=== PATIENT | male | born 1990 | race Caucasian/White ===

== ENCOUNTER 2016-12-11 18:02 | Emergency (ER) | payer BC ==
[~2016-12-11] VITALS: Ht 172.7 cm; Wt 100.0 kg
[~2016-12-11 18:02] MED LIST: METO50TA16 PO; TRAM50TA2 PO
[2016-12-11 18:12] VITALS: Ht 172.7 cm; Wt 100.0 kg
[2016-12-11] MEDS ORDERED: ALPR0.5T PO (18:59)
[2016-12-11] MEDS ORDERED: ALPRAZOLAM 0.25 MG TAB PO ONE (19:00)
[2016-12-11 19:16] VITALS: BP 132/71; PULSE 71; RESP 20; TEMP 98.3
--- NOTE | 2016-12-11 20:42 | ERD ---
ER Documentation Chief Complaint Date/Time DATE: 12/11/16 TIME: 20:39 Chief Complaint pt bib self with c/o feels like she might hurt herself (transgender) HPI This 26-year-old female came emergency room at the recommendation of her therapist. She was feeling bad earlier and she is transgender and is going through some difficult times. Stated she was feeling better. She now states that she feels well and does not want to hurt herself in any way. She does not believe that is necessary to go through laboratory examination stay in the emergency room because she is feeling much better. She denies any physical complaints as well. ROS All systems reviewed and are negative except as per history of present illness. Medications Home Meds Active Scripts Alprazolam* (Xanax*) 0.5 Mg Tab, 0.5 MG PO Q8H Y for ANXIETY, #11 TAB Prov:HEIDIWILLIAM DO 12/11/16 Tramadol HCl (Tramadol HCl) 50 Mg Tablet, 50 MG PO Q6 Y for PAIN, #20 TAB Prov:PRISCILLA STANTON DO 08/01/15 Reported Medications Metoprolol Succinate* (Toprol XL*) 50 Mg Tab.er.24h, 50 MG PO DAILY 02/26/14 Allergies Allergies: Coded Allergies: Penicillins (Verified Allergy, Unknown, 09/20/14) PMhx/Soc History of Surgery: Yes (elbow) Anesthesia Reaction: No Hx Neurological Disorder: No Hx Cardiac Disorders: Yes (postural orthostatic tachycardia) Hx Psychiatric Problems: No Hx Miscellaneous Medical Probl: No Hx Alcohol Use: No Hx Substance Use: No Hx Tobacco Use: No Smoking Status: Never smoker Physical Exam Vitals Vital Signs Date Time Temp Pulse Resp B/P Pulse Ox O2 Delivery O2 Flow Rate FiO2 12/11/16 19:16 98.3 71 20 132/71 98 Room Air 12/11/16 18:12 98.3 90 16 140/73 98 Physical Exam Const: [] No distress Head: Atraumatic Eyes: Normal Conjunctiva ENT: Normal External Ears, Nose and Mouth. Neck: Full range of motion..~ No meningismus. Ext: No cyanosis, or edema Neur: Awake and alert Psych: Normal Mood and Affect, calm reasonable and pleasant Results 24 hrs Current Medications Medications (Trade) Dose Ordered Sig/Anish Route PRN Reason Start Time Stop Time Status Last Admin Dose Admin Alprazolam (Xanax) 0.5 mg ONCE ONCE PO 12/11/16 19:00 12/11/16 19:01 DC 12/11/16 19:04 Procedures/MDM This is a very nice 26-year-old female with depression earlier in the day. She now states that she is feeling better. She is very common reasonable I do not have any suspicion that she is lying. I offered her a Xanax tablet for any anxiety she might feel she said that would be nice and would may prevent her from feeling bad again. Going to discharge her with a few Xanax tabs and she Lionel has good therapist follow-up. She is in stable condition. I am going to discharge her with instructions to see her therapist next couple of days and return to the ER if she has any bad thoughts again. Departure Diagnosis: Primary Impression: Depression Condition: Stable Patient Instructions: Depression Referrals: PIERRE CLARKE Additional Instructions: Call your primary care doctor TOMORROW for an appointment during the next 2-3 days.See the doctor sooner or return here if your condition worsens before your appointment time. WILLIAM GORDON DO Dec 11, 2016 20:41
== END 2016-12-11 19:20 | disposition home or self-care (01) ==
LOC: E/R 18:02
DX: F32.9 Major depressive disorder, single episode, unspecified (principal)
CPT/HCPCS: 99283

== ENCOUNTER 2017-11-09 04:33 | Inpatient (IN) | END 2017-11-12 13:02 | disposition home or self-care (01) | DRG 854 ==

== ENCOUNTER 2018-08-04 01:42 | Emergency (ER) | payer BC, OTHER ==
[~2018-08-04] VITALS: Ht 172.7 cm; Wt 114.8 kg
[~2018-08-04 01:42] MED LIST changes: +ALPR0.5T PO; +CIPR500T4 PO; +ESTR1TAB23 SUBLINGUAL; +FINA1TAB16 PO; +FLUC200T PO; +FLUT16SP17 NASAL; +HYDR-3601 PO; +METO-319 PO; -METO50TA16 PO; +PANT40TA4 PO
[2018-08-04 01:47] VITALS: RESP 18; Ht 172.7 cm; Wt 114.8 kg
[2018-08-04] MEDS ORDERED: SOD CHLORIDE 0.9% 500 ML IV STA (03:01)
[2018-08-04] MEDS ORDERED: ONDANSETRON 4 MG INJ IV STA (03:01)
[2018-08-04] MEDS ORDERED: MECL12.574 PO (04:41)
[2018-08-04 04:48] VITALS: BP 155/75; PULSE 80
--- NOTE | 2018-08-04 04:50 | ERD ---
ER Documentation Chief Complaint Chief Complaint BIB RA W/ C/O DIZZINESS AND JOVANI EAR PRESSURE X30 MIN HPI This is a 28-year-old female with history of "arrhythmia" who is brought to the ED by paramedics status post waking up with sudden onset dizziness and lightheadedness this morning. No recent URI type symptoms. She also reports a sensation of the room spinning with bilateral ear ringing. She denies any nausea or vomiting. No recent URI type symptoms. Denies any changes in vision. Denies any head trauma. Denies any shortness of breath or palpitations. No other symptoms. ROS All systems reviewed and are negative except as per history of present illness. Medications Home Meds Active Scripts Meclizine Hcl* (Antivert*) 12.5 Mg Tab, 12.5 MG PO Q6H PRN for DIZZINESS, #20 TAB Prov:IVON MASON PA-C 08/04/18 Allergies Allergies: Coded Allergies: Penicillins (Verified Allergy, Unknown, 08/04/18) PMhx/Soc History of Surgery: Yes (appendectomy) Hx Cardiac Disorders: Yes ("arrythmia") Hx Miscellaneous Medical Probl: Yes ("hormonal imbalance", acid reflux) Hx Alcohol Use: No Hx Substance Use: No Hx Tobacco Use: No Smoking Status: Never smoker Physical Exam Vitals Vital Signs Date Temp Pulse Resp B/P (MAP) Pulse Ox O2 O2 Flow FiO2 Time Delivery Rate 08/04/18 97.9 90 18 156/89 97 01:47 (111) Physical Exam Const: No acute distress Head: Atraumatic Eyes: Normal Conjunctiva. EOMI. PERRLA. No nystagmus. ENT: Normal External Ears, Nose and Mouth. Bilateral TMs pearly and pascal. Neck: Full range of motion. No meningismus. Resp: Clear to auscultation bilaterally Cardio: Regular rate and rhythm, no murmurs Abd: Soft, non tender, non distended. Normal bowel sounds Skin: No petechiae or rashes Back: No midline or flank tenderness Ext: No cyanosis, or edema Neuro: M/S: Alert and oriented Face: EOMI, face and pharynx with normal sensation and function Motor: Normal strength throughout Sensation: Normal sensation throughout Speech: Normal Cerebel: Normal coordination Normal gait Psych: Normal Mood and Affect Result Diagram: 08/04/18 0330 08/04/18 0330 Results 24 hrs Laboratory Tests Test 08/04/18 03:30 White Blood Count 8.8 10^3/ul Red Blood Count 4.75 10^6/ul Hemoglobin 13.0 g/dl Hematocrit 38.9 % Mean Corpuscular Volume 81.9 fl Mean Corpuscular Hemoglobin 27.4 pg Mean Corpuscular Hemoglobin Concent 33.4 g/dl Red Cell Distribution Width 14.3 % Platelet Count 249 10^3/UL Mean Platelet Volume 9.4 fl Immature Granulocytes % 0.600 % Neutrophils % 61.5 % Lymphocytes % 29.7 % Monocytes % 5.8 % Eosinophils % 2.1 % Basophils % 0.3 % Nucleated Red Blood Cells % 0.0 /100WBC Immature Granulocytes # 0.050 10^3/ul Neutrophils # 5.4 10^3/ul Lymphocytes # 2.6 10^3/ul Monocytes # 0.5 10^3/ul Eosinophils # 0.2 10^3/ul Basophils # 0.0 10^3/ul Nucleated Red Blood Cells # 0.0 10^3/ul Sodium Level 142 mmol/L Potassium Level 3.8 mmol/L Chloride Level 112 mmol/L Carbon Dioxide Level 22 mmol/L Anion Gap 8 Blood Urea Nitrogen 10 mg/dl Creatinine 0.62 mg/dl Est Glomerular Filtrat Rate mL/min > 60 mL/min Glucose Level 147 mg/dl Calcium Level 9.5 mg/dl Current Medications Medications Dose Sig/Anish Start Time Status Last (Trade) Ordered Route PRN Stop Time Admin Dose Reason Admin Sodium 500 ml @ Q1H STAT 08/04/18 DC 08/04/18 Chloride 500 mls/hr IV 03:01 08/04/18 03:32 04:00 Ondansetron 4 mg ONCE STAT 08/04/18 DC 08/04/18 HCl (Zofran IV 03:01 08/04/18 03:32 Inj) 03:02 Procedures/MDM LABS & DIAGNOSTIC IMAGING: CBC: no e/o of systemic infection or severe anemia CMP: no e/o severe acidosis, alkalosis, renal failure, diabetic ketoacidosis, liver disease PROCEDURES: 12-lead EKG interpretation as interpeted by Dr. Almonte. Normal Sinus Rhythm with ventricular rate of 78 beats per minute Normal axis Normal intervals No acute ST or T wave changes suggestive of acute ischemia or STEMI. ED COURSE: The patient was given IV fluids and Zofran The medication was well tolerated and the patient had market improvement in sy mptoms. The patient remained stable throughout ED course. MEDICAL DECISION MAKING: This is a 28-year-old female presents with complaints of lightheadedness and dizziness. She has no focal neurological deficit on physical exam. Workup as above including CBC and CMP without significant evidence of dehydration, infection or anemia. EKG shows normal sinus rhythm without any evidence of arrhythmia. Symptoms are likely peripheral in nature. I have low suspicion for central cause of her dizziness or vertigo. Low suspicion for intracranial bleeding, hemorrhage, mass, or any other symptoms. She does not need any further workup at this time. She feels significant better status post IV fluids and Zofran. She is tolerating p.o. prior to discharge. I recommended following up with the welding machine operator electro gas in 2 days, otherwise return here for any new or worsening symptoms. PRESCRIPTIONS: Meclizine SPECIALIST FOLLOW UP RECOMMENDED: None Patient has been advised to follow up with primary care in 1-2 days. Blood Pressure Assessment: Patient's blood pressure was elevated (>120/80) but appears stable without evidence of hypertension emergency or urgency. The patient was counseled about the risks of hypertension and urged to pursue outpatient monitoring and therapy within a week with their primary care physician. Departure Diagnosis: Primary Impression: Dizziness Condition: Stable Patient Instructions: Inner Ear Problems: Causes of Dizziness (Vertigo), Vertigo, Unspecified Referrals: COMMUNITY CLINICS YOU HAVE RECEIVED A MEDICAL SCREENING EXAM AND THE RESULTS INDICATE THAT YOU DO NOT HAVE A CONDITION THAT REQUIRES URGENT TREATMENT IN THE EMERGENCY DEPARTMENT. FURTHER EVALUATION AND TREATMENT OF YOUR CONDITION CAN WAIT UNTIL YOU ARE SEEN IN YOUR DOCTORS OFFICE WITHIN THE NEXT 1-2 DAYS. IT IS YOUR RESPONSIBILITY TO MAKE AN APPOINTMENT FOR FOLOW-UP CARE. IF YOU HAVE A PRIMARY DOCTOR --you should call your primary doctor and schedule an appointment IF YOU DO NOT HAVE A PRIMARY DOCTOR YOU CAN CALL OUR PHYSICIAN REFERRAL HOTLINE AT IF YOU CAN NOT AFFORD TO SEE A PHYSICIAN YOU CAN CHOSE FROM THE FOLLOWING COMMUNITY CLINICS [facility] [address] [facility] [address] [facility] [address] [facility] [address] [facility]. [facility] [address] [facility]. [facility] [address] [facility] YOU HAVE RECEIVED A MEDICAL SCREENING EXAM AND THE RESULTS INDICATE THAT YOU DO NOT HAVE A CONDITION THAT REQUIRES URGENT TREATMENT IN THE EMERGENCY DEPARTMENT. FURTHER EVALUATION AND TREATMENT OF YOUR CONDITION CAN WAIT UNTIL YOU ARE SEEN IN YOUR DOCTORS OFFICE WITHIN THE NEXT 1-2 DAYS. IT IS YOUR RESPONSIBILITY TO MAKE AN APPOINTMENT FOR FOLOW-UP CARE. IF YOU HAVE A PRIMARY DOCTOR --you should call your primary doctor and schedule and appointment IF YOU DO NOT HAVE A PRIMARY DOCTOR YOU CAN CALL OUR PHYSICIAN REFERRAL HOTLINE AT . IF YOU CAN NOT AFFORD TO SEE A PHYSICIAN YOU CAN CHOSE FROM THE FOLLOWING [facility]: [facility] [address] [place] [address] [facility] [address] [place] [address] [facility] + [facility] [address] [place] [address] [facility] Additional Instructions: Call your primary care doctor TOMORROW for an appointment during the next 2-4 days and bring all the information and medications prescribed. If the symptoms get worse and your provider is unavailable, return to the Emergency Department immediately. IVON MASON PA-C Aug 04, 2018 04:50
== END 2018-08-04 05:53 | disposition home or self-care (01) ==
LOC: MERGE 01:42 → FTE 01:42
DX: R42 Dizziness and giddiness (principal)
CPT/HCPCS: 80048; 85025; 93005; 96361; 96374; 99284; J2405; J7040

== ENCOUNTER 2018-08-25 08:11 | Inpatient (IN) | payer BC ==
[~2018-08-25] VITALS: Ht 175.3 cm; Wt 115.0 kg
[~2018-08-25 08:11] MED LIST changes: +MECL12.574 PO
[2018-08-25] MEDS ORDERED: ONDANSETRON 4 MG INJ IV STA (08:51)
[2018-08-25] MEDS ORDERED: FAMOTIDINE 20 MG TAB PO STA (08:51)
[2018-08-25] MEDS ORDERED: SOD CHLORIDE 0.9% 1,000 ML IV STA (08:51)
[2018-08-25] MEDS ORDERED: KETOROLAC 30 MG INJ IV STA (08:51)
[2018-08-25] MEDS ORDERED: IOHEXOL 300MG/ML 150 ML BTL ONE (09:24)
[2018-08-25] MEDS ORDERED: SOD CHLORIDE 0.9% 100 ML ONE (09:24)
[2018-08-25] MEDS ORDERED: LORAZEPAM 2 MG INJ IV ONE (10:30)
[2018-08-25] MEDS ORDERED: ASPIRIN 81 MG TAB PO ONE (10:30)
[2018-08-25] MEDS ORDERED: PANT40TA3 PO (11:18)
[2018-08-25] MEDS ORDERED: METO-319 PO (11:19)
[2018-08-25] MEDS ORDERED: EST2 PO (11:19)
[2018-08-25] MEDS ORDERED: FINA1TAB16 PO (11:20)
--- NOTE | 2018-08-25 14:11 | HP ---
Date/Time of Note Date/Time of Note DATE: 08/25/18 TIME: 14:11 Assessment/Plan VTE Prophylaxis Pharmacological prophylaxis: LMWH Lines/Catheters IV C[facility]ter Type (from [facility]): Peripheral IV Assessment/Plan Hospital Course 28-year-old female with comorbidities including postural orthostatic tachycardia, anxiety, and obesity who came to the emergency room with chief complaint of sudden onset chest pain, with evidence of elevated troponins in the emergency room, who will be admitted to inpatient setting for further treatment and evaluation. 1. NSTEMI. -The patient will be continued on aspirin. -Will involve cardiology on the case. -Obtain a 2D echocardiogram to evaluate left ventricular ejection fraction and to evaluate for any wall motion abnormalities. 2. Postural orthostatic tachycardia. -Resume Toprol-XL. 3. Anxiety disorder. -Continue PRN anxiolytics. 4. Obesity. -BMI 37. -Weight reduction will be advised. Plan: The patient will be admitted to inpatient telemetry floor. The patient will be started on a regular diet. The patient will be started on DVT prophylaxis and gastrointestinal prophylaxis. The patient will remain a full code. Activities will be as tolerated. The rest of the patient's management will be based on the clinical course, inputs from consultants, and the results of diagnostic studies. Based on the patient's clinical presentation, she most probably requires at least 1 midnight's stay for further management and evaluation of her clinical presentation. The patient was seen in collaboration with Dr. Bañuelos. Result Diagram: 08/25/1891908/25/1820 Results 24hrs Laboratory Tests Test 08/25/18 09:05 08/25/18 09:19 08/25/18 09:20 POC Beta HCG, Qualitative NEGATIVE Urine Color YELLOW Urine Clarity SLIGHTLY CLOUDY A Urine pH 5.0 Urine Specific Wells 1.027 Urine Ketones NEGATIVE Urine Nitrite NEGATIVE Urine Bilirubin NEGATIVE Urine Urobilinogen NEGATIVE Urine Leukocyte Esterase TRACE A Urine Microscopic RBC 1 Urine Microscopic WBC 4 Urine Squamous FEW Epithelial Cells Urine Hemoglobin NEGATIVE Urine Glucose NEGATIVE Urine Total Protein NEGATIVE Urine Opiates Screen NEGATIVE Urine Barbiturates NEGATIVE Urine Amphetamines Screen NEGATIVE Urine Benzodiazepines Screen NEGATIVE Urine Cocaine Screen NEGATIVE Urine Cannabinoids NEGATIVE White Blood Count 9.9 Red Blood Count 5.50 H Hemoglobin 15.0 Hematocrit 44.4 Mean Corpuscular Volume 80.7 L Mean Corpuscular Hemoglobin 27.3 L Mean Corpuscular 33.8 Hemoglobin Concent Red Cell Distribution Width 13.9 Platelet Count 265 Mean Platelet Volume 9.2 Immature Granulocytes % 0.300 Neutrophils % 67.9 Lymphocytes % 26.3 Monocytes % 4.0 Eosinophils % 1.3 Basophils % 0.2 Nucleated Red Blood Cells % 0.0 Immature Granulocytes # 0.030 Neutrophils # 6.7 Lymphocytes # 2.6 Monocytes # 0.4 Eosinophils # 0.1 Basophils # 0.0 Nucleated Red Blood Cells # 0.0 Sodium Level 143 Potassium Level 3.8 Chloride Level 109 Carbon Dioxide Level 22 Anion Gap 12 Blood Urea Nitrogen 10 Creatinine 0.53 Est Glomerular Filtrat > 60 Rate mL/min Glucose Level 117 Calcium Level 10.0 Total Bilirubin 0.3 Direct Bilirubin 0.00 Indirect Bilirubin 0.3 Aspartate Amino 21 Transf (AST/SGOT) Alanine 19 Aminotransferase (ALT/SGPT) Alkaline Phosphatase 87 Troponin I 0.252 *H Total Protein 7.6 Albumin 4.5 Globulin 3.10 Albumin/Globulin Ratio 1.45 Lipase 39 HPI/ROS Admit Date/Time Admit Date/Time Hx of Present Illness Reason for admission: Chest pain, elevated troponins. Consultants 1.Joo Cline MD, cardiology. This is a 28-year-old female (male to female gender change surgery) with a past medical history of anxiety, postural orthostatic tachycardia, and obesity. The patient came to the emergency room with sudden onset of chest pain. The patient verbalized that the chest pain started after she took her morning medications including Protonix, Toprol-XL, estradiol, and acetazolamide. The patient suddenly felt a throbbing pain in the chest with radiation to the back and bilateral arms. Patient also verbalized associated diaphoresis. The patient panicked and called 911. She was unable to convey if she was dyspneic because she was hyperventilating with underlying anxiety. The patient also verbalized that she has been sick recently and she recently finished her [employer] tripack. She denied any fevers or chills. The patient also verbalized that she has been evaluated by gastroenterology for her chronic right upper quadrant pain and intermittent diarrhea and the patient is scheduled for an endoscopy on September 26, 2018. The patient denied any calf pain or recent prolonged immobilization. In the emergency room, the patient's chest x-ray was negative for any acute findings. The patient underwent a CT scan of the abdomen and pelvis that was negative for any acute intra-abdominal/pelvic inflammatory process. However the CT showed several right lower quadrant mesenteric lymph nodes. The patient's troponin was slightly elevated (0.252). The patient was treated with a single dose of aspirin, IV anxiolytics, and IV Toradol in the emergency room. ROS Constitutional: diaphoresis, nausea Eyes: no complaints ENT: no complaints Respiratory: shortness of breath Cardiovascular: chest pain Gastrointestinal: pain Genitourinary: no complaints Musculoskeletal: bone/joint pain Skin: no complaints Neurologic: no complaints Endocrine: no complaints Lymphatic: no complaints Psychological: anxiety Immunologic: no complaints PMH/Family/Social Past Medical History 1. Postural orthostatic tachycardia. 2. Obesity. 3. Anxiety disorder. Coded Allergies: Penicillins (Verified Allergy, Unknown, 08/25/18) Past Surgical History 1. Genital reconstructive surgery (male to female). 2. B/L orchiectomy. 3. Right elbow surgery. 4. Facial surgery. 5. Appendectomy. Past Surgical Hx: other Family History Significant Family History: no pertinent family hx Social History Lives with her father. 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 Alcohol Use: none Smoking Status: Never smoker Drug Use: none Exam/Review of Systems Vital Signs Vitals Vital Signs Date Temp Pulse Resp B/P (MAP) Pulse Ox O2 O2 Flow FiO2 Time Delivery Rate 08/25/18 98 18 153/78 100 Room Air 12:30 (103) 08/25/18 97.6 08:27 Exam Exam General: Obese, 28 year-old female lying in bed in no apparent distress. HEENT: Normocephalic, atraumatic. Eyes: Anicteric sclerae, conjunctivae clear. ENT: Nasal septum midline, oral mucosa moist. Neck supple. Respiratory: Bilaterally diminished breath sounds. No use of accessory muscles of respiration. No adventitious breath sounds. Cardiovascular: S1, S2 heard. Regular rate and rhythm. Abdomen: Soft, nontender, and nondistended. Bowel sounds positive in all 4 quadrants. Genitourinary: Deferred. Extremities: No cyanosis, no clubbing, no edema. Peripheral pulses palpable. Neurologic: Cranial nerves II through XII grossly intact. The patient is awake, alert, and oriented. Skin: Normal skin turgor. No skin rashes. Additional Comments CT Abdomen & Pelvis IMPRESSION: 1. No evidence of acute intra-abdominal/pelvic inflammatory process. No evidence of bowel obstruction. The appendix not visualized. Status post appendectomy. Several right lower quadrant mesenteric lymph nodes, which may represent mesenteric lymphadenitis. 2. No evidence of free fluid or free air. No gross focal fluid collections. 3. No gross renal/ureteric calculi. No evidence of obstructive uropathy. CXR IMPRESSION: 1. No acute pulmonary abnormality. DORITA THOMPSON NP Aug 25, 2018 14:11
[2018-08-25] MEDS ORDERED: ACETAMINOPHEN 325 MG TAB PO PRN (14:30)
[2018-08-25] MEDS ORDERED: LORAZEPAM 2 MG INJ IV PRN (14:30)
[2018-08-25] MEDS ORDERED: ONDANSETRON 4 MG INJ IV PRN (14:30)
[2018-08-25] MEDS ORDERED: NACL 0.9% 3 ML SYG IV SCH (14:30)
--- NOTE | 2018-08-25 14:46 | ERD ---
ER Documentation Chief Complaint Chief Complaint EPIGASTRIC PAIN THIS MORNING AFTER TAKING MORNING MEDS HPI This is a 28-year-old woman brought in by EMS for pressure-like substernal chest pain radiating to the neck, upper back, and bilateral shoulders. She does have a history of suspected gastritis and uses GI medications including Protonix daily, states her chest pain today began immediately after using her morning medications. Along with the chest discomfort she also had diaphoresis but denied dizziness, loss of consciousness, nausea, or shortness of breath. Patient also has a long history of anxiety and has on average about one attack every 1 to 2 months. Patient did suffer with URI symptoms last week including nasal congestion, rhinorrhea, and cough and her PMD prescribed her azithromycin and finished her course of couple of days ago. Patient denies similar episodes of chest pain or discomfort, she has had no calf or leg swelling, no vomiting or diarrhea, no shortness of breath. ROS All systems reviewed and are negative except as per history of present illness. Medications Home Meds Reported Medications Finasteride* (Finasteride*) 1 Mg Tablet, 1 MG PO HS, TAB 08/25/18 Metoprolol Succinate* (Toprol XL*) 50 Mg Tab.er.24h, 50 MG PO DAILY, #30 TAB 08/25/18 Estradiol* (Estrace*) 2 Mg Tab, 4 MG PO TID, TAB 08/25/18 Pantoprazole* (Protonix*) 40 Mg Tablet.dr, 40 MG PO DAILY, TAB 08/25/18 Discontinued Reported Medications Fluticasone Propionate* (Fluticasone Propionate* Nasal) 50 Mcg/[place] - 16 Gm [place].susp, 2 SPRAYS NASAL DAILY, #1 BOTTLE TO EACH NOSTRIL 11/09/17 Estradiol* (Estrace*) 1 Mg Tablet, 2 MG SUBLINGUAL BID, TAB 11/09/17 Finasteride* (Finasteride*) 1 Mg Tablet, 1 MG PO DAILY, TAB 11/09/17 Pantoprazole (Protonix) 40 Mg Tabec, 40 MG PO DAILY, TAB 11/09/17 Metoprolol Succinate* (Toprol XL*) 50 Mg Tab.er.24h, 50 MG PO DAILY 02/26/14 Discontinued Scripts Meclizine Hcl* (Antivert*) 12.5 Mg Tab, 12.5 MG PO Q6H PRN for DIZZINESS, #20 TAB Prov:DISHIGRIKIAN,ZEPYUR Henrietta DHALIWAL 08/04/18 Hydrocodone Bit-Acetaminophen (Hydrocodone Bit-APAP) 5-325MG Tablet, 1 TAB PO Q8 PRN for BREAKTHROUGH PAIN/PAIN 02/05 for 7 Days, #21 TAB Prov:JOHN FELDMAN 11/12/17 Ciprofloxacin Hcl* (Ciprofloxacin Hcl*) 500 Mg Tablet, 500 MG PO BID@06,18 for 7 Days, #14 TAB Prov:JOHN FELDMAN 11/12/17 Fluconazole* (Diflucan*) 200 Mg Tablet, 200 MG PO DAILY for 13 Days, #13 TAB Prov:JOHN FELDMAN 11/12/17 Alprazolam* (Xanax*) 0.5 Mg Tab, 0.5 MG PO Q8H PRN for ANXIETY, #11 TAB Prov:HEIDIWILLIAM 12/11/16 Tramadol HCl (Tramadol HCl) 50 Mg Tablet, 50 MG PO Q6 PRN for PAIN, #20 TAB Prov:PRISCILLA STANTON DO 08/01/15 Allergies Allergies: Coded Allergies: Penicillins (Verified Allergy, Unknown, 08/25/18) PMhx/Soc Anxiety, recent URI completed a course of azithromycin History of Surgery: Yes (appendectomy) Anesthesia Reaction: No Hx Neurological Disorder: No Hx Respiratory Disorders: No Hx Cardiac Disorders: Yes (ORTHOSTATIC TACHYCARDIA) Hx Psychiatric Problems: No Hx Miscellaneous Medical Probl: Yes ("hormonal imbalance", acid reflux) Hx Alcohol Use: No Hx Substance Use: No Hx Tobacco Use: No Smoking Status: Never smoker Physical Exam Vitals Vital Signs Date Temp Pulse Resp B/P (MAP) Pulse Ox O2 O2 Flow FiO2 Time Delivery Rate 08/25/18 98 18 153/78 100 Room Air 12:30 (103) 08/25/18 101 18 151/80 100 Room Air 10:30 (103) 08/25/18 97.6 82 18 165/80 97 08:27 (108) Physical Exam GENERAL: Well-developed, well-nourished, he appeared anxious, afebrile HEENT: Moist mucous membranes, pink conjunctiva, no cervical spine tenderness or step-off deformities, no goiter, no jaundice or icterus, extraocular movements intact without pain. No submandibular induration, and no pharyngeal erythema NEURO: Alert and oriented 3, cranial nerves II through XII intact bilaterally, pupils equal round reactive to light, no focal deficits or facial asymmetry, sensation intact distally Strength 5/5 in upper and lower extremities bilaterally CARDIAC: Regular rate and rhythm, no murmurs rubs or gallops LUNGS: Clear bilaterally no wheezing crackles or stridor ABDOMEN: Soft nontender, no guarding, no rigidity, no rebound, no psoas sign no obturator sign. Normoactive bowel sounds SKIN: Warm and dry to touch, diffuse pallor, no abrasions, contusions, or hematomas, no lacerations, no ecchymosis, no target lesions, and without ulcers EXTREMITIES: No clubbing cyanosis or edema, calves are bilaterally symmetrical, no Homans sign, no popliteal cord sign. Distal pulses equal and bilateral PSYCH: Anxious Result Diagram: 08/25/1891908/25/18919 Results 24 hrs Laboratory Tests Test 08/25/18 09:05 08/25/18 09:19 08/25/18 09:20 POC Beta HCG, Qualitative NEGATIVE Urine Color YELLOW Urine Clarity SLIGHTLY CLOUDY Urine pH 5.0 Urine Specific [place] 1.027 Urine Ketones NEGATIVE mg/dL Urine Nitrite NEGATIVE mg/dL Urine Bilirubin NEGATIVE mg/dL Urine Urobilinogen NEGATIVE mg/dL Urine Leukocyte Esterase TRACE Tanner/ul Urine Microscopic RBC 1 /HPF Urine Microscopic WBC 4 /HPF Urine Squamous Epithelial Cells FEW /HPF Urine Hemoglobin NEGATIVE mg/dL Urine Glucose NEGATIVE mg/dL Urine Total Protein NEGATIVE mg/dl Urine Opiates Screen NEGATIVE Urine Barbiturates NEGATIVE Urine Amphetamines Screen NEGATIVE Urine Benzodiazepines Screen NEGATIVE Urine Cocaine Screen NEGATIVE Urine Cannabinoids NEGATIVE White Blood Count 9.9 10^3/ul Red Blood Count 5.50 10^6/ul Hemoglobin 15.0 g/dl Hematocrit 44.4 % Mean Corpuscular Volume 80.7 fl Mean Corpuscular Hemoglobin 27.3 pg Mean Corpuscular 33.8 g/dl Hemoglobin Concent Red Cell Distribution Width 13.9 % Platelet Count 265 10^3/UL Mean Platelet Volume 9.2 fl Immature Granulocytes % 0.300 % Neutrophils % 67.9 % Lymphocytes % 26.3 % Monocytes % 4.0 % Eosinophils % 1.3 % Basophils % 0.2 % Nucleated Red Blood Cells % 0.0 /100WBC Immature Granulocytes # 0.030 10^3/ul Neutrophils # 6.7 10^3/ul Lymphocytes # 2.6 10^3/ul Monocytes # 0.4 10^3/ul Eosinophils # 0.1 10^3/ul Basophils # 0.0 10^3/ul Nucleated Red Blood Cells # 0.0 10^3/ul Sodium Level 143 mmol/L Potassium Level 3.8 mmol/L Chloride Level 109 mmol/L Carbon Dioxide Level 22 mmol/L Anion Gap 12 Blood Urea Nitrogen 10 mg/dl Creatinine 0.53 mg/dl Est Glomerular Filtrat > 60 mL/min Rate mL/min Glucose Level 117 mg/dl Calcium Level 10.0 mg/dl Total Bilirubin 0.3 mg/dl Direct Bilirubin 0.00 mg/dl Indirect Bilirubin 0.3 mg/dl Aspartate Amino 21 IU/L Transf (AST/SGOT) Alanine 19 IU/L Aminotransferase (ALT/SGPT) Alkaline Phosphatase 87 IU/L Troponin I 0.252 ng/ml Total Protein 7.6 g/dl Albumin 4.5 g/dl Globulin 3.10 g/dl Albumin/Globulin Ratio 1.45 Lipase 39 U/L Current Medications Medications Dose Sig/Anish Start Time Status Last (Trade) Ordered Route PRN Stop Time Admin Dose Reason Admin Sodium 1,000 ml @ Q1H STAT 08/25/18 DC 08/25/18 Chloride 1,000 mls/hr IV 08:51 09:17 08/25/18 09:50 Ondansetron 4 mg ONCE STAT 08/25/18 DC 08/25/18 HCl (Zofran IV 08:51 09:18 Inj) 08/25/18 08:53 Famotidine 20 mg ONCE STAT 08/25/18 DC 08/25/18 (Pepcid) PO 08:51 09:18 08/25/18 08:53 Ketorolac 30 mg ONCE STAT 08/25/18 DC Tromethamine IV 08:51 (Toradol) 08/25/18 08:53 IV Flush 10 ml STK-MED 08/25/18 DC 08/25/18 (NS 10 ml) ONCE .ROUTE 09:24 10:43 08/25/18 09:25 Sodium 100 ml @ ud STK-MED 08/25/18 DC 08/25/18 Chloride ONCE .ROUTE 09:24 10:43 08/25/18 09:25 Iohexol 150 ml STK-MED 08/25/18 DC 08/25/18 (Omnipaque ONCE .ROUTE 09:24 10:43 300mg/ ml) 08/25/18 09:25 Aspirin 162 mg ONCE ONCE 08/25/18 DC 08/25/18 (Aspirin) PO 10:30 10:14 08/25/18 10:31 Lorazepam 0.5 mg ONCE ONCE 08/25/18 DC 08/25/18 (Ativan) IV 10:30 10:27 08/25/18 10:31 IV Flush 3 ml PER 08/25/18 (NS 3 ml) PROTOCOL IV 14:30 Lorazepam 0.5 mg Q6H PRN 08/25/18 (Ativan) IV .ANXIETY 14:30 Ondansetron 4 mg Q6H PRN 08/25/18 HCl (Zofran IV 14:30 Inj) NAUSEA/VOMITI NG Aspirin 81 mg DAILY PO 08/26/18 (Aspirin) 09:00 650 mg Q6H PRN 08/25/18 Acetaminophen PO .PAIN 1-3 14:30 (Tylenol OR TEMP Tab) Enoxaparin 40 mg DAILY SC 08/26/18 Sodium 09:00 (Lovenox) Procedures/MDM IV line was established patient was placed on laundry agent rhythm strip revealed a sinus rhythm at about 80 bpm with upright P and T waves. Patient was afebrile EKG performed, read by me: Normal sinus rhythm 81 bpm, normal axis, right ventricular conduction delay QRS duration 100 ms, no concerning ST elevations or depressions noted. One AP view of the chest performed, read by me reveals no acute infiltrates, normal mediastinum, sharp costophrenic and cardiac borders, no air under the diaphragm. Otherwise unremarkable chest x-ray. I initially treated the patient with 1 L normal saline IV, Toradol 30 mg IV, Zofran 4 mg IV, and famotidine p.o. CBC and electrolytes are normal, liver function tests were normal, troponin positive at 0.2. Patient was extremely anxious and administered lorazepam 0.5 mg IV x1 and aspirin 162 mg p.o. for cardioprotective measures. Patient's symptoms are concerning for cardiac cause will require inpatient workup and continuous monitoring. Further w/u for ischemia, arrhythmia, PE or dissection will be deferred to the inpatient team. Accepting Care Team: Current data and ongoing care discussed. Time: Time of admission Primary Provider: Hospitalist Consulting: Cardiology department Outstanding Data: none Patient is without complaints of chest pain or shortness of breath at this time but she will be admitted to telemetry. Departure Diagnosis: Primary Impression: Non-STEMI (non-ST elevated myocardial infarction) Condition: JOHN Mccloud MD Aug 25, 2018 14:37
[2018-08-25 20:26] VITALS: Ht 175.3 cm; Wt 115.0 kg
[2018-08-25 20:39] VITALS: BP 134/61; PULSE 95; RESP 20
[2018-08-25] MEDS ORDERED: ESTRADIOL 1 MG TAB PO SCH (21:00)
[2018-08-26] VITALS (10 sets, daily range): BP systolic 120–128; BP diastolic 56–66; PULSE 66–98; RESP 20
--- NOTE | 2018-08-26 07:38 | CONS ---
Assessment/Plan Assessment/Plan Hospital Course (Demo Recall) Chest pain: Appears to be related to GI causes after taking big pills. Mildly abnormal troponin etiology unclear doubt acute ME History of orthostatic tachycardia Anxiety Obesity History of mild hypertension Recommendation: Continue with aspirin for now continue with the beta-tracie Echocardiogram is pending We will schedule for Lexiscan stress the right ischemia DC planning if a stress test is negative. 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 This is a pleasant 28-year-old female with history of orthostatic hypotension obesity who came to emergency room above complaint. Patient stated that she took her morning pills which according to her or take pills. She said that she rushed to take them. After she took them she started having pain in her throat and in her chest. She felt like she was choking on them. She has never had pain like this before and called family was brought in for initial troponin and subsequent troponin have been slightly elevated. Patient denies any chest pain or pressure with activity or exercise. Allergies: Penicillin Medications were reviewed as per medical reconciliation sheet Family history: Grandparents at old age with coronary artery disease Social history: Does not smoke or drink Past medical history: Orthostatic tachycardia for which she takes metoprolol Review of system: Patient denies all others except for above-mentioned Past Medical History Home Meds Reported Medications Finasteride* (Finasteride*) 1 Mg Tablet, 1 MG PO HS, TAB 08/25/18 Metoprolol Succinate* (Toprol XL*) 50 Mg Tab.er.24h, 50 MG PO DAILY, #30 TAB 08/25/18 Estradiol* (Estrace*) 2 Mg Tab, 4 MG PO TID, TAB 08/25/18 Pantoprazole* (Protonix*) 40 Mg Tablet.dr, 40 MG PO DAILY, TAB 08/25/18 Discontinued Reported Medications Fluticasone Propionate* (Fluticasone Propionate* Nasal) 50 Mcg/[place] - 16 Gm [place].susp, 2 SPRAYS NASAL DAILY, #1 BOTTLE TO EACH NOSTRIL 11/09/17 Estradiol* (Estrace*) 1 Mg Tablet, 2 MG SUBLINGUAL BID, TAB 11/09/17 Finasteride* (Finasteride*) 1 Mg Tablet, 1 MG PO DAILY, TAB 11/09/17 Pantoprazole (Protonix) 40 Mg Tabec, 40 MG PO DAILY, TAB 11/09/17 Metoprolol Succinate* (Toprol XL*) 50 Mg Tab.er.24h, 50 MG PO DAILY 02/26/14 Discontinued Scripts Meclizine Hcl* (Antivert*) 12.5 Mg Tab, 12.5 MG PO Q6H PRN for DIZZINESS, #20 TAB Prov:IVON MASON PA-C 08/04/18 Hydrocodone Bit-Acetaminophen (Hydrocodone Bit-APAP) 5-325MG Tablet, 1 TAB PO Q8 PRN for BREAKTHROUGH PAIN/PAIN 02/05 for 7 Days, #21 TAB Prov:JOHN FELDMAN 11/12/17 Ciprofloxacin Hcl* (Ciprofloxacin Hcl*) 500 Mg Tablet, 500 MG PO BID@,18 for 7 Days, #14 TAB Prov:JOHN FELDMAN 11/12/17 Fluconazole* (Diflucan*) 200 Mg Tablet, 200 MG PO DAILY for 13 Days, #13 TAB Prov:JOHN FELDMAN 11/12/17 Alprazolam* (Xanax*) 0.5 Mg Tab, 0.5 MG PO Q8H PRN for ANXIETY, #11 TAB Prov:WILLIAM GORDON DO 12/11/16 Tramadol HCl (Tramadol HCl) 50 Mg Tablet, 50 MG PO Q6 PRN for PAIN, #20 TAB Prov:PRISCILLA STANTON DO 08/01/15 Medications Current Medications IV Flush (NS 3 ml) 3 ml PER PROTOCOL IV ; Start 08/25/18 at 14:30 Lorazepam (Ativan) 0.5 mg Q6H PRN IV .ANXIETY Last administered on 08/26/18at 07:10; Admin Dose 0.5 MG; Start 08/25/18 at 14:30 Ondansetron HCl (Zofran Inj) 4 mg Q6H PRN IV NAUSEA/VOMITING Last administered on 08/25/18at 23:14; Admin Dose 4 MG; Start 08/25/18 at 14:30 Aspirin (Aspirin) 81 mg DAILY PO ; Start 08/26/18 at 09:00 Acetaminophen (Tylenol Tab) 650 mg Q6H PRN PO .PAIN 1-3 OR TEMP; Start 08/25/18 at 14:30 Enoxaparin Sodium (Lovenox) 40 mg DAILY SC ; Start 08/26/18 at 09:00 Metoprolol Succinate (Toprol Xl) 50 mg DAILY PO ; Start 08/26/18 at 09:00 Pantoprazole (Protonix Tab) 40 mg DAILY PO ; Start 08/26/18 at 09:00 Estradiol (Estrace) 2 mg BID PO ; Start 08/26/18 at 09:00 Allergies: Coded Allergies: Penicillins (Verified Allergy, Unknown, 08/25/18) Past Surgical History Past Surgical Hx: other Social History Alcohol Use: none Smoking Status: Never smoker Drug Use: none Exam/Review of Systems Vital Signs Vitals Vital Signs Date Temp Pulse Resp B/P (MAP) Pulse Ox O2 O2 Flow FiO2 Time Delivery Rate 08/26/18 98.3 87 20 127/62 96 07:32 (83) 08/25/18 Room Air 19:27 Intake and Output 08/25/18 08/25/18 08/26/18 1515:00 23:00 07:00 IntakeIntake Total 500 ml BalanceBalance 500 ml Exam Exam General: no acute distress HEENT: NC/AT. pupils are equal. round. NECK: NO JVD. no stridor. CV: RRR. systolic murmur; no gallop or rubs. PULM: no wheezing or rhonchi. GI: SOFT, NT, ND, no rebound or guarding Extremity: trace B/L LE edema. no clubbing. neuro: awake and alert, OX3. Psych: calm and pleasant rectal: deferred : normal EKG normal sinus rhythm. Repolarization abnormalities Chest x-ray showed no acute cardiopulmonary disease Labs Result Diagram: 08/26/1831208/26/18311 Results 24hrs Laboratory Tests Test 08/25/18 09:05 08/25/18 09:19 08/25/18 09:20 08/25/18 14:41 POC Beta HCG, NEGATIVE Qualitative Urine Color YELLOW Urine Clarity SLIGHTLY CLOUDY A Urine pH 5.0 Urine Specific 1.027 [place] Urine Ketones NEGATIVE Urine Nitrite NEGATIVE Urine Bilirubin NEGATIVE Urine NEGATIVE Urobilinogen Urine Leukocyte TRACE A Esterase Urine Microscopic 1 RBC Urine Microscopic 4 WBC Urine Squamous FEW Epithelial Cells Urine Hemoglobin NEGATIVE Urine Glucose NEGATIVE Urine Total NEGATIVE Protein Urine Opiates NEGATIVE Screen Urine NEGATIVE Barbiturates Urine NEGATIVE Amphetamines Screen Urine NEGATIVE Benzodiazepines Screen Urine Cocaine NEGATIVE Screen Urine NEGATIVE Cannabinoids White Blood Count 9.9 Red Blood Count 5.50 H Hemoglobin 15.0 Hematocrit 44.4 Mean Corpuscular 80.7 L Volume Mean Corpuscular 27.3 L Hemoglobin Mean Corpuscular 33.8 Hemoglobin Concen t Red Cell 13.9 Distribution Width Platelet Count 265 Mean Platelet 9.2 Volume Immature 0.300 Granulocytes % Neutrophils % 67.9 Lymphocytes % 26.3 Monocytes % 4.0 Eosinophils % 1.3 Basophils % 0.2 Nucleated Red 0.0 Blood Cells % Immature 0.030 Granulocytes # Neutrophils # 6.7 Lymphocytes # 2.6 Monocytes # 0.4 Eosinophils # 0.1 Basophils # 0.0 Nucleated Red 0.0 Blood Cells # Sodium Level 143 Potassium Level 3.8 Chloride Level 109 Carbon Dioxide 22 Level Anion Gap 12 Blood Urea 10 Nitrogen Creatinine 0.53 Est Glomerular > 60 Filtrat Rate mL/min Glucose Level 117 Calcium Level 10.0 Total Bilirubin 0.3 Direct Bilirubin 0.00 Indirect 0.3 Bilirubin Aspartate Amino 21 Transf (AST/SGOT) Alanine 19 Aminotransferase (ALT/SGPT) Alkaline 87 Phosphatase Troponin I 0.252 *H 1.210 *H Total Protein 7.6 Albumin 4.5 Globulin 3.10 Albumin/Globulin 1.45 Ratio Lipase 39 Hemoglobin A1c 5.1 Creatine Kinase 40 Creatine Kinase 6.7 Index Creatinine Kinase 2.67 H MB (Mass) Thyroid 0.888 Stimulating Hormone (TSH) Test 08/25/18 16:50 08/25/18 21:12 08/26/18 03:12 08/26/18 03:13 D-Dimer < 220.00 D-Dimer Comment Creatine Kinase 39 30 Creatine Kinase 6.2 5.5 Index Creatinine Kinase 2.40 1.66 MB (Mass) Troponin I 0.483 *H 0.244 *H Sodium Level 143 Potassium Level 3.7 Chloride Level 112 H Carbon Dioxide 21 Level Anion Gap 10 Blood Urea 7 Nitrogen Creatinine 0.51 Est Glomerular > 60 Filtrat Rate mL/min Glucose Level 104 Calcium Level 9.6 Phosphorus Level 3.6 Magnesium Level 1.9 Total Bilirubin 0.5 Direct Bilirubin 0.00 Indirect 0.5 Bilirubin Aspartate Amino 21 Transf (AST/SGOT) Alanine 22 Aminotransferase (ALT/SGPT) Alkaline 73 Phosphatase Total Protein 6.7 Albumin 3.7 Globulin 3.00 Albumin/Globulin 1.23 Ratio Triglycerides 161 H Level Cholesterol Level 149 LDL Cholesterol, 67 Calculated HDL Cholesterol 50 Cholesterol/HDL 2.9 Ratio White Blood Count 8.3 Red Blood Count 4.76 Hemoglobin 13.1 Hematocrit 38.6 Mean Corpuscular 81.1 L Volume Mean Corpuscular 27.5 L Hemoglobin Mean Corpuscular 33.9 Hemoglobin Concen t Red Cell 13.9 Distribution Width Platelet Count 232 Mean Platelet 9.2 Volume Immature 0.200 Granulocytes % Neutrophils % 55.9 Lymphocytes % 37.0 Monocytes % 5.5 Eosinophils % 1.2 Basophils % 0.2 Nucleated Red 0.0 Blood Cells % Immature 0.020 Granulocytes # Neutrophils # 4.6 Lymphocytes # 3.1 H Monocytes # 0.5 Eosinophils # 0.1 Basophils # 0.0 Nucleated Red 0.0 Blood Cells # Medications Medications Current Medications IV Flush (NS 3 ml) 3 ml PER PROTOCOL IV ; Start 08/25/18 at 14:30 Lorazepam (Ativan) 0.5 mg Q6H PRN IV .ANXIETY Last administered on 08/26/18at 07:10; Admin Dose 0.5 MG; Start 08/25/18 at 14:30 Ondansetron HCl (Zofran Inj) 4 mg Q6H PRN IV NAUSEA/VOMITING Last administered on 08/25/18at 23:14; Admin Dose 4 MG; Start 08/25/18 at 14:30 Aspirin (Aspirin) 81 mg DAILY PO ; Start 08/26/18 at 09:00 Acetaminophen (Tylenol Tab) 650 mg Q6H PRN PO .PAIN 1-3 OR TEMP; Start 08/25/18 at 14:30 Enoxaparin Sodium (Lovenox) 40 mg DAILY SC ; Start 08/26/18 at 09:00 Metoprolol Succinate (Toprol Xl) 50 mg DAILY PO ; Start 08/26/18 at 09:00 Pantoprazole (Protonix Tab) 40 mg DAILY PO ; Start 08/26/18 at 09:00 Estradiol (Estrace) 2 mg BID PO ; Start 08/26/18 at 09:00 VICENTA HO MD Aug 26, 2018 07:38
[2018-08-26] MEDS ORDERED: ENOXAPARIN 40 MG/0.4 ML SYG SC SCH (09:00)
[2018-08-26] MEDS ORDERED: ASPIRIN 81 MG TAB PO SCH (09:00)
[2018-08-26] MEDS ORDERED: PANTOPRAZOLE (EC) 40 MG TAB PO SCH (09:00)
[2018-08-26] MEDS ORDERED: ESTRADIOL 1 MG TAB PO SCH (09:00)
[2018-08-26] MEDS ORDERED: METOPROLOL (XL) 50 MG TAB PO SCH (09:00)
--- NOTE | 2018-08-26 10:30 | RADRPT ---
Echocardiogram Report Patient Name: TAYLER SALCEDOPatient ID: [id number] : 1990 (28y 6m)Study Date: 08/26/2018 7:20:53 AM Gender: FAccession #: [id number] Tech: Cecilia Hay [facility] Location: [facility] Ref.Physician: DORITA THOMPSON Height(Cm): BSA: Weight(Kg): Quality: AdequateAccount #: Procedures: Echocardiographic Report: Transthoracic echocardiogram with complete 2D, M-Mode, and doppler examination. Indications: Chest Pain. Measurements: 2D/M Mode Doppler Measurement Value Normal Range Measurement Value Normal Range LVIDd 2D 4.5 [ 3.8 - 5.2 ] cm AV Peak Shadi 1.4 [ 100.0 - 170.0 ] cm/sec LVIDs 2D 2.2 [ 2.2 - 3.5 ] cm AV Peak PG 8.0 [ 2.0 - 9.0 ] mmHg LVPWd 2D 0.9 [ 0.6 - 0.9 ] cm LVOT Peak Shadi 1.0 [ 70.0 - 110.0 ] cm/sec IVSd 2D 0.9 [ 0.6 - 0.9 ] cm LVOT Peak PG 4.0 [ 2.0 - 6.0 ] mmHg AoR Diam 2D 2.6 [ 2.3 - 3.1 ] cm MV E Peak Shadi 0.7 [ 60.0 - 130.0 ] cm/sec EDV 2D 90.5 [ 46.0 - 106.0 ] ml MV A Peak Shadi 0.7 [ 100.0 - 120.0 ] cm/sec ESV 2D 16.0 [ 14.0 - 42.0 ] ml MV E/A 1.0 [ 0.8 - 1.5 ] ratio EF 2D 82.3 [ 54.0 - 74.0 ] percent MV Decel Time 92 [ 104 - 258 ] msec LA Dimen 2D 2.9 [ 2.7 - 3.8 ] cm Lat E` Shadi 0.1 [ 10.0 - 15.0 ] cm/sec Lateral E/E` 6.5 [ 1.0 - 2.0 ] ratio MV E/A 1.0 [ 0.8 - 1.5 ] ratio Findings: Left Ventricle: Normal left ventricular systolic function. Normal left ventricular cavity size. Normal left ventricular wall thickness. Ejection fraction is visually estimated at 65 %. Tissue Doppler/Mitral Doppler indices are within normal limits. Right Ventricle: Normal right ventricular size. Normal right ventricular systolic function. Left Atrium: The left atrium is normal in size. Right Atrium: The right atrium is normal in size. Mitral Valve: Normal appearance and function of the mitral valve with trace physiologic regurgitation. Aortic Valve: Normal appearance of the aortic valve. No significant aortic stenosis or insufficiency. Tricuspid Valve: Normal appearance of the tricuspid valve. Unable to obtain RVSP due to minimal presence of tricuspid regurgitation. Pulmonic Valve: Pulmonic valve not well visualized. Pericardium: Normal pericardium with no significant pericardial effusion. Aorta: Normal aortic root. IVC: Normal size and normal respiratory collapse consistent with normal right atrial pressure. Conclusions: Normal left ventricular systolic function. Normal left ventricular cavity size. Normal left ventricular wall thickness. Ejection fraction is visually estimated at 65 %. Tissue Doppler/Mitral Doppler indices are within normal limits. Normal appearance and function of the mitral valve with trace physiologic regurgitation. Normal appearance of the aortic valve. No significant aortic stenosis or insufficiency. Normal appearance of the tricuspid valve. Unable to obtain RVSP due to minimal presence of tricuspid regurgitation. Electronically Signed By: Joo Cline 2018-08-26 10:30:08 PDT
[2018-08-26] MEDS ORDERED: REGADENOSON 0.4 MG/5 ML SYG ONE (10:44)
--- NOTE | 2018-08-26 14:16 | PDOCDIS ---
Discharge Instructions CONDITION [id number] Patient Condition: [id number] Stable HOME CARE INSTRUCTIONS: [id number] Diet Instructions: [id number] Low Fat /Cholesterol OTHER ORDERS: Other Orders: 1. Resume home medications. 2. Resume activities as tolerated. 3. Follow-up with your permit agent/primary care physician in the 1 to 2 weeks. 4. Take a regular, preferably low-cholesterol diet. 5. Please go to the nearest emergency room if you have any significant chest pain, significant shortness of breath, or any other unusual signs/symptoms. DORITA THOMPSON NP Aug 26, 2018 14:16
--- NOTE | 2018-08-26 14:19 | DS ---
Date/Time of Note Date/Time of Note DATE: 08/26/18 TIME: 14:18 Discharge Summary Admission/Discharge Info Admit Date/Time Aug 25, 2018 at 10:31 Discharge Date/Time Discharge Diagnosis 1. NSTEMI. 2. Atypical chest pain. 3. Postural orthostatic tachycardia. 4. Anxiety disorder. 5. Obesity. BMI 37. Patient Condition: Stable Consults 1. Joo Cline MD, Cardiology. Procedures 2D Echocardiogram Conclusions: Normal left ventricular systolic function. Normal left ventricular cavity size. Normal left ventricular wall thickness. Ejection fraction is visually estimated at 65 %. Tissue Doppler/Mitral Doppler indices are within normal limits. Normal appearance and function of the mitral valve with trace physiologic regurgitation. Normal appearance of the aortic valve. No significant aortic stenosis or insufficiency. Normal appearance of the tricuspid valve. Unable to obtain RVSP due to minimal presence of tricuspid regurgitation. Nuclear medicine Myocardial Perfusion Study IMPRESSION: 1. Negative myocardial perfusion scan. It was 2. There is no evidence for reversible ischemia. 3. Normal wall motion with normal ejection fraction of 62%. Hx of Present Illness Reason for admission: Chest pain, elevated troponins. Consultants 1.Joo Cline MD, cardiology. This is a 28-year-old female (male to female gender change surgery) with a past medical history of anxiety, postural orthostatic tachycardia, and obesity. The patient came to the emergency room with sudden onset of chest pain. The patient verbalized that the chest pain started after she took her morning medications including Protonix, Toprol-XL, estradiol, and acetazolamide. The patient suddenly felt a throbbing pain in the chest with radiation to the back and bilateral arms. Patient also verbalized associated diaphoresis. The patient panicked and called 911. She was unable to convey if she was dyspneic because she was hyperventilating with underlying anxiety. The patient also verbalized that she has been sick recently and she recently finished her [employer] tripack. She denied any fevers or chills. The patient also verbalized that she has been evaluated by gastroenterology for her chronic right upper quadrant pain and intermittent diarrhea and the patient is scheduled for an endoscopy on September 26, 2018. The patient denied any calf pain or recent prolonged immobilization. In the emergency room, the patient's chest x-ray was negative for any acute findings. The patient underwent a CT scan of the abdomen and pelvis that was negative for any acute intra-abdominal/pelvic inflammatory process. However the CT showed several right lower quadrant mesenteric lymph nodes. The patient's troponin was slightly elevated (0.252). The patient was treated with a single dose of aspirin, IV anxiolytics, and IV Toradol in the emergency room. Hospital Course The patient was admitted to inpatient setting. A cardiology consult was obtained. Serial troponins were ordered on this patient. A 2D echocardiogram was ordered. The patient's troponins trended up to as high as 1.210 and then started trending down. Etiology of the patient's chest pain was extensively evaluated. The patient's d-dimer was negative ruling out any thromboembolic process. The patient's 2D echocardiogram was showing preserved left ventricular ejection fraction. The patient underwent a myocardial perfusion study on 08/26/2018 and that was negative for any reversible perfusion defects. The patient's elevated troponins could have been secondary to a type II event from underlying stress that happened when the patient had chest pain. Meanwhile, the patient's chest pain has completely resolved. The patient was initially started on aspirin and this will be discontinued once the patient was ruled out for any reversible perfusion defects in the myocardium. The patient has history of postural orthostatic tachycardia. The patient was maintained on Toprol-XL. The patient was maintained on PRN anxiolytics for her underlying anxiety. The patient is obese with a BMI of more than 37. The patient's fasting lipid panel was satisfactory. The patient's hemoglobin A1c was within normal limits. The patient recently had a gender change surgery from a male to female. The patient was maintained on estrogen supplements. The patient had a stable hospital course. The patient has been ruled out for any underlying ACS. 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 The patient already has a scheduled gastroenterology work-up including esophagogastroduodenoscopy on September 26 as outpatient. Discharge Instructions 1. Resume home medications. 2. Resume activities as tolerated. 3. Follow-up with your refuse and recycling worker/primary care physician in the 1 to 2 weeks. 4. Take a regular, preferably low-cholesterol diet. 5. Please go to the nearest emergency room if you have any significant chest pain, significant shortness of breath, or any other unusual signs/symptoms. The patient verbalized understanding of her discharge instructions. At this time I would like to thank Dr. Cline for seeing the patient and providing clinical recommendations. The patient was seen in collaboration with Dr. Bañuelos. Home Meds Reported Medications Finasteride* (Finasteride*) 1 Mg Tablet, 1 MG PO HS, TAB 08/25/18 Metoprolol Succinate* (Toprol XL*) 50 Mg Tab.er.24h, 50 MG PO DAILY, #30 TAB 08/25/18 Estradiol* (Estrace*) 2 Mg Tab, 4 MG PO TID, TAB 08/25/18 Pantoprazole* (Protonix*) 40 Mg Tablet.dr, 40 MG PO DAILY, TAB 08/25/18 Discontinued Reported Medications Fluticasone Propionate* (Fluticasone Propionate* Nasal) 50 Mcg/[place] - 16 Gm [place].susp, 2 SPRAYS NASAL DAILY, #1 BOTTLE TO EACH NOSTRIL 11/09/17 Estradiol* (Estrace*) 1 Mg Tablet, 2 MG SUBLINGUAL BID, TAB 11/09/17 Finasteride* (Finasteride*) 1 Mg Tablet, 1 MG PO DAILY, TAB 11/09/17 Pantoprazole (Protonix) 40 Mg Tabec, 40 MG PO DAILY, TAB 11/09/17 Metoprolol Succinate* (Toprol XL*) 50 Mg Tab.er.24h, 50 MG PO DAILY 02/26/14 Discontinued Scripts Meclizine Hcl* (Antivert*) 12.5 Mg Tab, 12.5 MG PO Q6H PRN for DIZZINESS, #20 TAB Prov:IVON MASON PA-C 08/04/18 Hydrocodone Bit-Acetaminophen (Hydrocodone Bit-APAP) 5-325MG Tablet, 1 TAB PO Q8 PRN for BREAKTHROUGH PAIN/PAIN 02/05 for 7 Days, #21 TAB Prov:JOHN FELDMAN 11/12/17 Ciprofloxacin Hcl* (Ciprofloxacin Hcl*) 500 Mg Tablet, 500 MG PO BID@18 for 7 Days, #14 TAB Prov:JOHN FELDMAN 11/12/17 Fluconazole* (Diflucan*) 200 Mg Tablet, 200 MG PO DAILY for 13 Days, #13 TAB Prov:JOHN FELDMAN 11/12/17 Alprazolam* (Xanax*) 0.5 Mg Tab, 0.5 MG PO Q8H PRN for ANXIETY, #11 TAB Prov:WILLIAM GORDON DO 12/11/16 Tramadol HCl (Tramadol HCl) 50 Mg Tablet, 50 MG PO Q6 PRN for PAIN, #20 TAB Prov:PRISCILLA STANTON DO 08/01/15 Follow-up Plan Patient to follow-up with her refuse and recycling worker/primary care physician in the next 1 to 2 weeks. Primary Care Provider Care Physician No Primary Time spent on discharge: > 30 minutes Pending Labs Laboratory Tests Test 08/25/18 14:41 08/25/18 16:50 08/25/18 21:12 08/26/18 03:12 Hemoglobin A1c 5.1 % (0-5.9) Creatine 40 39 30 Kinase IU/L (23-200) IU/L (23-200) IU/L (23-200) Creatine Kinase 6.7 6.2 5.5 Index Creatinine 2.67 2.40 1.66 Kinase MB ng/ml (0.0-2.4) ng/ml (0.0-2.4 ng/ml (0.0-2.4 (Mass) ) ) Troponin I 1.210 0.483 0.244 ng/ml (0.000-0. ng/ml (0.000-0 ng/ml (0.000-0 120) .120) .120) Thyroid 0.888 Stimulating MIU/L (0.465-4. Hormone (TSH) 680) D-Dimer < 220.00 ng/ml (<460) D-Dimer Comment Sodium Level 143 mmol/L (135-14 4) Potassium 3.7 Level mmol/L (3.5-5. 1) Chloride Level 112 mmol/L (97-110 ) Carbon Dioxide 21 Level mmol/L (21-31) Anion Gap 10 (5-13) Blood Urea 7 mg/dl (7-20) Nitrogen Creatinine 0.51 mg/dl (0.44-1. 00) Est Glomerular > 60 Filtrat mL/min (>60) Rate mL/min Glucose Level 104 mg/dl (70-220) Calcium Level 9.6 mg/dl (8.4-10. 2) Phosphorus 3.6 Level mg/dl (2.5-4.9 ) Magnesium 1.9 Level mg/dl (1.7-2.5 ) Total 0.5 Bilirubin mg/dl (0.2-1.3 ) Direct 0.00 Bilirubin mg/dl (0.00-0. 20) Indirect 0.5 Bilirubin mg/dl (0-1.1) Aspartate Amino 21 Transf (AST/SGO IU/L (15-46) T) Alanine 22 Aminotransferas IU/L (13-69) e (ALT/SGPT) Alkaline 73 Phosphatase IU/L (42-121) Total Protein 6.7 g/dl (6.1-8.1) Albumin 3.7 g/dl (3.3-4.9) Globulin 3.00 g/dl (1.3-3.2) Albumin/Globuli 1.23 n Ratio Triglycerides 161 Level mg/dl (0-149) Cholesterol 149 Level mg/dl (100-200 ) LDL 67 mg/dl Cholesterol, Calculated HDL 50 Cholesterol mg/dl (33-83) Cholesterol/HDL 2.9 RATIO Ratio Test 08/26/18 03:13 White Blood 8.3 Count 10^3/ul (4.8-10 .8) Red Blood 4.76 Count 10^6/ul (4.20-5 .40) Hemoglobin 13.1 g/dl (12.0-16.0 ) Hematocrit 38.6 % (37.0-47.0) Mean 81.1 Corpuscular fl (82.0-101.0) Volume Mean 27.5 Corpuscular pg (29.0-33.0) Hemoglobin Mean 33.9 Corpuscular g/dl (32.0-37.0 Hemoglobin Conc ) ent Red Cell 13.9 Distribution % (11.5-14.5) Width Platelet Count 232 10^3/UL (140-41 5) Mean Platelet 9.2 Volume fl (7.4-10.4) Immature 0.200 Granulocytes % % (0.001-0.429) Neutrophils % 55.9 % (39.0-77.0) Lymphocytes % 37.0 % (15.0-51.0) Monocytes % 5.5 % (0.0-11.0) Eosinophils % 1.2 % (0.0-7.0) Basophils % 0.2 % (0.0-2.0) Nucleated Red 0.0 Blood Cells % /100WBC (0.0-0. 0) Immature 0.020 Granulocytes # 10^3/ul (0.0-0. 031) Neutrophils # 4.6 10^3/ul (1.6-7. 5) Lymphocytes # 3.1 10^3/ul (0.8-2. 9) Monocytes # 0.5 10^3/ul (0.3-0. 9) Eosinophils # 0.1 10^3/ul (0.0-0. 5) Basophils # 0.0 10^3/ul (0.0-0. 1) Nucleated Red 0.0 Blood Cells # 10^3/ul (0.0-0. 0) DORITA THOMPSON NP Aug 26, 2018 14:19
== END 2018-08-26 19:30 | disposition home or self-care (01) | DRG 282 ==
LOC: FTE 08:11 → TEL 10:31
PROVIDERS: ADMIT Internal Medicine; ATTEND Internal Medicine
PROC: C21G1ZZ Planar Nuclear Medicine Imaging of Myocardium using Technetium 99m (Tc-99m) (ICD-10-PCS; principal; 2018-08-26)
DX: I21.4 Non-ST elevation (NSTEMI) myocardial infarction (principal); R00.0 Tachycardia, unspecified; F41.9 Anxiety disorder, unspecified; E66.9 Obesity, unspecified; Z68.37 Body mass index [BMI] 37.0-37.9, adult
CPT/HCPCS: 36415; 71045; 74177; 78452; 80053; 80061; 80307; 81001; 81025; 82550; 82553; 83036; 83690; 83735; 84100; 84443; 84484; 85025; 85378; 93005; 93017; 93306; 96361; 96374; 96375; A9500; A9505; J1650; J1885; J2060; J2405; J2785; J7030; Q9967

== ENCOUNTER 2018-09-10 09:24 | Emergency (ER) | payer BC ==
[~2018-09-10] VITALS: Ht 175.3 cm; Wt 113.6 kg
[~2018-09-10 09:24] MED LIST changes: -ALPR0.5T PO; -CIPR500T4 PO; +EST2 PO; -ESTR1TAB23 SUBLINGUAL; -FLUC200T PO; -FLUT16SP17 NASAL; -HYDR-3601 PO; -MECL12.574 PO; +PANT40TA3 PO; -PANT40TA4 PO; -TRAM50TA2 PO
[2018-09-10 09:35] VITALS: Ht 175.3 cm; Wt 113.6 kg
--- NOTE | 2018-09-10 09:46 | ERD ---
ER Documentation Chief Complaint Chief Complaint cp starting about 0900 today. ntg and asa given by ems HPI This is a 28-year-old transvestite woman presenting with achy left-sided chest pain when she woke up this morning about an hour prior to arrival. She was here about 2 weeks ago and had similar symptoms and was diagnosed and admitted for non-ST elevation myocardial infarction. Her inpatient work-up was unremarkable and she was discharged to follow-up with PMD, she states she did follow-up with her PMD and continued outpatient work-up for acute coronary syndrome was unrevealing. She denies diaphoresis or shortness of breath, no fevers or chills, no cough, no calf or leg swelling. Patient was transported here without further complications ROS All systems reviewed and are negative except as per history of present illness. Medications Home Meds Active Scripts Naproxen* (Naprosyn*) 500 Mg Tablet, 500 MG PO BID PRN for PAIN AND/OR INFLAMMATION, #30 TAB Prov:JOHN NAVAS MD 09/10/18 Reported Medications Amlodipine Besylate* (Amlodipine Besylate*) 2.5 Mg Tablet, 2.5 MG PO DAILY, #30 TAB 09/10/18 Nitroglycerin* (Nitroglycerin* SL) 0.4 Mg Tab.subl, 0.4 MG SL Q5MIN PRN for CHEST PAIN, BOTTLE 09/10/18 Metoprolol Succinate* (Toprol XL*) 50 Mg Tab.er.24h, 50 MG PO DAILY, #30 TAB 08/25/18 Estradiol* (Estrace*) 2 Mg Tab, 2 MG PO BID, TAB 08/25/18 Pantoprazole* (Protonix*) 40 Mg Tablet.dr, 40 MG PO DAILY, TAB 08/25/18 Discontinued Reported Medications Finasteride* (Finasteride*) 1 Mg Tablet, 1 MG PO HS, TAB 08/25/18 Allergies Allergies: Coded Allergies: Penicillins (Verified Allergy, Unknown, 09/10/18) PMhx/Soc History of recurrent chest pain, severe anxiety, recent non-STEMI and LVEF of 62%, uses estradiol for male to female sex change History of Surgery: Yes ("gender affirmation sx") Anesthesia Reaction: No Hx Neurological Disorder: No Hx Respiratory Disorders: No Hx Cardiac Disorders: No Hx Psychiatric Problems: Yes (hypochondriac, anxiety) Hx Miscellaneous Medical Probl: Yes (hysterectomy, appendectomy) Hx Alcohol Use: No Hx Substance Use: No Hx Tobacco Use: No Smoking Status: Never smoker FmHx Family History: No diabetes Physical Exam Vitals Vital Signs Date Temp Pulse Resp B/P (MAP) Pulse Ox O2 O2 Flow FiO2 Time Delivery Rate 09/10/18 98.3 109 18 143/81 100 09:35 (101) Physical Exam GENERAL: Well-developed, well-nourished, well-hydrated, in no apparent distress, looks nontoxic in appearance HEENT: Moist mucous membranes, pink conjunctiva, no cervical spine tenderness or step-off deformities, no goiter, no jaundice or icterus, extraocular movements intact without pain. No submandibular induration, and no pharyngeal erythema NEURO: Alert and oriented 3, cranial nerves II through XII intact bilaterally, pupils equal round reactive to light, no focal deficits or facial asymmetry, sensation intact distally Strength 5/5 in upper and lower extremities bilaterally CARDIAC: Regular rate and rhythm, no murmurs rubs or gallops LUNGS: Clear bilaterally no wheezing crackles or stridor ABDOMEN: Soft nontender, no guarding, no rigidity, no rebound, no psoas sign no obturator sign. Normoactive bowel sounds SKIN: Warm and dry to touch, no abrasions, contusions, or hematomas, no lacerations, no ecchymosis, no target lesions, and without ulcers EXTREMITIES: No clubbing cyanosis or edema, calves are bilaterally symmetrical, no Homans sign, no popliteal cord sign. Distal pulses equal and bilateral PSYCH: Normal affect without agitation or irritability Result Diagram: 09/10/18 1015 09/10/18 1015 Results 24 hrs Laboratory Tests Test 09/10/18 10:15 White Blood Count 6.7 10^3/ul Red Blood Count 5.18 10^6/ul Hemoglobin 14.2 g/dl Hematocrit 41.8 % Mean Corpuscular Volume 80.7 fl Mean Corpuscular Hemoglobin 27.4 pg Mean Corpuscular Hemoglobin Concent 34.0 g/dl Red Cell Distribution Width 13.5 % Platelet Count 245 10^3/UL Mean Platelet Volume 8.8 fl Immature Granulocytes % 0.300 % Neutrophils % 63.1 % Lymphocytes % 27.3 % Monocytes % 7.6 % Eosinophils % 1.3 % Basophils % 0.4 % Nucleated Red Blood Cells % 0.0 /100WBC Immature Granulocytes # 0.020 10^3/ul Neutrophils # 4.2 10^3/ul Lymphocytes # 1.8 10^3/ul Monocytes # 0.5 10^3/ul Eosinophils # 0.1 10^3/ul Basophils # 0.0 10^3/ul Nucleated Red Blood Cells # 0.0 10^3/ul Sodium Level 143 mmol/L Potassium Level 4.3 mmol/L Chloride Level 107 mmol/L Carbon Dioxide Level 28 mmol/L Anion Gap 8 Blood Urea Nitrogen 11 mg/dl Creatinine 0.61 mg/dl Est Glomerular Filtrat Rate mL/min > 60 mL/min Glucose Level 134 mg/dl Calcium Level 9.6 mg/dl Total Bilirubin 0.4 mg/dl Direct Bilirubin 0.00 mg/dl Indirect Bilirubin 0.4 mg/dl Aspartate Amino Transf (AST/SGOT) 31 IU/L Alanine Aminotransferase (ALT/SGPT) 33 IU/L Alkaline Phosphatase 101 IU/L Troponin I < 0.012 ng/ml Total Protein 7.7 g/dl Albumin 4.3 g/dl Globulin 3.40 g/dl Albumin/Globulin Ratio 1.26 Lipase 31 U/L Current Medications Medications Dose Sig/Anish Start Time Status Last (Trade) Ordered Route PRN Stop Time Admin Dose Reason Admin Sodium 1,000 ml @ Q1H STAT 09/10/18 DC 09/10/18 Chloride 1,000 mls/hr IV 09:49 10:33 09/10/18 10:48 1 tab ONCE ONCE 09/10/18 DC 09/10/18 Nitroglycerin SL 10:00 10:33 09/10/18 10:01 (Nitroglyceri n (Sl Tab) 0.4 Mg) Procedures/MDM IV line was established patient was placed on electronic device monitor rhythm strip revealed a narrow complex tachycardia at 110 bpm with upright P and T waves. Patient was afebrile EKG performed, read by me revealed a sinus tachycardia at 105 bpm, normal axis, narrow QRS complex, no concerning ST elevations or depressions noted Chest X-ray 1V Interpreted by me: Soft Tissue: No acute abnormalities Bones: No acute abnormalities Mediastinum/Cardiac Silhouette/Lungs: No acute abnormalities I administered 1 L normal saline IV and nitroglycerin 0.4 mg sublingual x1 CBC and electrolytes were normal, liver function tests were normal, troponin was negative. The patient's history, physical exam and clinical presentation is concerning for possible cardiogenic etiology and acute coronary syndrome Based on the patient's clinical exam and history and risk factors, I have a much lower clinical concern for pulmonary embolism, acute aortic dissection, pneumothorax, pneumonia, cardiac tamponade Shared Decision Making: We had a conversation regarding risk stratification, and the risks, benefits, alternatives of disposition planning options. Patient preferred discharge if her second troponin is negative which is an option I offered her. I also told her we could admit her for continued medical and cardiac management and observation. Disposition planning: Patient's initial hypertension resolved completely, she is no longer anxious and her vital signs are normal. 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 I find this decision medically acceptable at this time. Differential diagnoses considered, included but not limited to acute coronary syndrome, pulmonary embolism, aortic dissection, abdominal aortic aneurysm, sepsis, stroke, meningitis, encephalitis, pneumonia, appendicitis, cholecystitis, bowel obstruction, pyelonephritis, nephrolithiasis, cystitis, as well as metabolic, hematologic, and electrolyte abnormalities. As well as abscess, cellulitis, fractures, and dislocations. Patient feels much better at this time, and vital signs are normal, symptoms dobbins ve improved. I did give strict instructions to return to the ED if symptoms continue or worsen, patient will otherwise follow-up with primary care physician. Patient understood instructions and agreed to plan. Disclaimer: Inadvertent spelling and grammatical errors are likely due to EHR/dictation software use and do not reflect on the overall quality of patient care. Also, please note that the electronic time recorded on this note does not necessarily reflect the actual time of the patient encounter. Departure Diagnosis: Primary Impression: Chest pain Chest pain type: unspecified Qualified Codes: R07.9 - Chest pain, unspecified Additional Impressions: Hypertension Hypertension type: essential hypertension Qualified Codes: I10 - Essential (primary) hypertension Anxiety Condition: JOHN Franklin MD September 10, 2018 09:46
[2018-09-10] MEDS ORDERED: SOD CHLORIDE 0.9% 1,000 ML IV STA (09:49)
[2018-09-10] MEDS ORDERED: NITROGLYCERIN (SL) 0.4 MG TAB SL ONE (10:00)
[2018-09-10] MEDS ORDERED: NITR0.4T32 SL (10:30)
[2018-09-10] MEDS ORDERED: AMLO2.5T78 PO (10:30)
[2018-09-10] MEDS ORDERED: NAPR-985 PO (11:07)
[2018-09-10] MEDS ORDERED: LORAZEPAM 0.5 MG TAB PO ONE (11:30)
[2018-09-10] MEDS ORDERED: IOHEXOL 0 ML ONE (13:59)
[2018-09-10] MEDS ORDERED: SOD CHLORIDE 0.9% 0 ML ONE (13:59)
[2018-09-10 14:24] VITALS: BP 123/73; PULSE 89; RESP 18
--- NOTE | 2018-09-12 14:47 | RADRPT ---
Vent Rate: 105 bpm RR Interval: 0 msec [place] Interval: 140 msec QRS Duration: 94 msec QT Interval: 344 msec QTC Interval: 454 msec P-R-T Shock: 53 - 43 - 44 degrees Sinus tachycardia Otherwise normal ECG Electronically Signed By: [facility]
== END 2018-09-10 14:30 | disposition home or self-care (01) ==
LOC: E/R 09:24
DX: R07.9 Chest pain, unspecified (principal); I10 Essential (primary) hypertension; F41.9 Anxiety disorder, unspecified
CPT/HCPCS: 36415; 71045; 80053; 83690; 84484; 85025; 93005; 99285; J7030; Q9967

== ENCOUNTER 2018-09-21 01:55 | Emergency (ER) | payer BC ==
[~2018-09-21] VITALS: Ht 175.3 cm; Wt 111.9 kg
[2018-09-21 01:55] VITALS: BP 142/74; PULSE 89; RESP 16; Ht 175.3 cm; Wt 111.9 kg
[~2018-09-21 01:55] MED LIST changes: +AMLO2.5T78 PO; -FINA1TAB16 PO; +NAPR-985 PO; +NITR0.4T32 SL
--- NOTE | 2018-09-21 02:24 | ERD ---
ER Documentation Chief Complaint Chief Complaint BIB RA39 for anxiety s/p hearing sound outside of window, hx of anxiety HPI This is a 28-year-old female presents emergency department with complaints of chest pain, chest pressure that started around 1:20 AM early this morning after hearing sounds in her house. Stated that she thought that there was someone breaking in her house, called the police, found out that there was still raccoons. LMP: Stated that she does not have this. G0, . Denies headache, head injury, loss of consciousness, dizziness, neck pain, neck stiffness, throat pain, difficulty swallowing, difficulty breathing lying flat, shoulder pain, chest pain, back pain, abdominal pain, nausea, vomiting, con stipation, diarrhea, urinary symptoms, or possibility being , loss of bowel and bladder control, trauma, injury, falls, difficulty walking due to pain, numbness or tingling sensation, calf pain, recent travel, recent major surgery in the last 3 weeks, calf pain, recent long travel, recent exposure to any illness, recent antibiotic use in the last 3 months, fever, chills, seizures . Past medical history: Non-STEMI last August 25, 2009. Surgical history: Appendectomy. Social: Denies smoking, use of alcoholic beverages, use of illegal drugs. ROS All systems reviewed and are negative except as per history of present illness. Medications Home Meds Active Scripts Pantoprazole* (Protonix*) 40 Mg Tablet.dr, 40 MG PO DAILY, #30 TAB Prov:PASILAJAMES MONAHANAR F 09/21/18 Ibuprofen* (Motrin*) 800 Mg Tab, 800 MG PO Q6H PRN for PAIN AND OR ELEVATED TEMP, #30 TAB Prov:PASILABANCLAUDIA F 09/21/18 Sulfamethoxazole/Trimethoprim* (Bactrim Ds* Tablet) 1 Each Tablet, 1 TAB PO BID for 7 Days, #14 TAB Prov:PASILABAN,CLAUDIA F 09/21/18 Hydroxyzine Hcl* (Hydroxyzine Hcl*) 50 Mg Tablet, 50 MG PO Q6 PRN for ANXIETY, #30 TAB Prov:PASILABAN,JAMESAR F 09/21/18 Naproxen* (Naprosyn*) 500 Mg Tablet, 500 MG PO BID PRN for PAIN AND/OR INFLAMMATION, #30 TAB Prov:JOHN NAVAS MD 09/10/18 Reported Medications Amlodipine Besylate* (Amlodipine Besylate*) 2.5 Mg Tablet, 2.5 MG PO DAILY, #30 TAB 09/10/18 Nitroglycerin* (Nitroglycerin* SL) 0.4 Mg Tab.subl, 0.4 MG SL Q5MIN PRN for CHEST PAIN, BOTTLE 09/10/18 Metoprolol Succinate* (Toprol XL*) 50 Mg Tab.er.24h, 50 MG PO DAILY, #30 TAB 08/25/18 Estradiol* (Estrace*) 2 Mg Tab, 2 MG PO BID, TAB 08/25/18 Pantoprazole* (Protonix*) 40 Mg Tablet.dr, 40 MG PO DAILY, TAB 08/25/18 Allergies Allergies: Coded Allergies: Penicillins (Verified Allergy, Unknown, 09/10/18) PMhx/Soc History of Surgery: Yes ("gender affirmation sx") Anesthesia Reaction: No Hx Neurological Disorder: No Hx Respiratory Disorders: No Hx Cardiac Disorders: No Hx Psychiatric Problems: Yes (hypochondriac, anxiety) Hx Miscellaneous Medical Probl: Yes (hysterectomy, appendectomy) Hx Alcohol Use: No Hx Substance Use: No Hx Tobacco Use: No Smoking Status: Never smoker Physical Exam Vitals Vital Signs Date Temp Pulse Resp B/P (MAP) Pulse Ox O2 O2 Flow FiO2 Time Delivery Rate 09/21/18 98.3 89 16 142/74 97 01:55 (96) Physical Exam Const: No acute distress Head: Atraumatic Eyes: Normal Conjunctiva ENT: Normal External Ears, Nose and Mouth. Neck: Full range of motion. No meningismus. Resp: Clear to auscultation bilaterally Cardio: Regular rate and rhythm, no murmurs Abd: Soft, non tender, non distended. Normal bowel sounds Skin: No petechiae or rashes Back: No midline or flank tenderness Ext: No cyanosis, or edema Neur: Awake and alert. No neurological deficit. Psych: Normal Mood and Affect. Denies auditory/visual hallucinations/delusions. Not suicidal. Not homicidal. Has the capacity to decide for herself. Has good support system at home. Result Diagram: 09/21/18 0234 09/21/18 0234 Results 24 hrs Laboratory Tests Test 09/21/18 02:34 09/21/18 02:39 White Blood Count 8.5 10^3/ul Red Blood Count 4.97 10^6/ul Hemoglobin 13.5 g/dl Hematocrit 40.5 % Mean Corpuscular Volume 81.5 fl Mean Corpuscular Hemoglobin 27.2 pg Mean Corpuscular Hemoglobin Concent 33.3 g/dl Red Cell Distribution Width 13.4 % Platelet Count 227 10^3/UL Mean Platelet Volume 8.7 fl Immature Granulocytes % 0.600 % Neutrophils % 56.6 % Lymphocytes % 35.6 % Monocytes % 5.4 % Eosinophils % 1.4 % Basophils % 0.4 % Nucleated Red Blood Cells % 0.0 /100WBC Immature Granulocytes # 0.050 10^3/ul Neutrophils # 4.8 10^3/ul Lymphocytes # 3.0 10^3/ul Monocytes # 0.5 10^3/ul Eosinophils # 0.1 10^3/ul Basophils # 0.0 10^3/ul Nucleated Red Blood Cells # 0.0 10^3/ul Prothrombin Time 12.5 Sec Prothrombin Time Ratio 1.0 INR International Normalized Ratio 0.92 Activated Partial Thromboplast Time 29.0 Sec Urine Color YELLOW Urine Clarity CLEAR Urine pH 6.0 Urine Specific [place] 1.028 Urine Ketones NEGATIVE mg/dL Urine Nitrite NEGATIVE mg/dL Urine Bilirubin NEGATIVE mg/dL Urine Urobilinogen NEGATIVE mg/dL Urine Leukocyte Esterase 1+ [place]/ul Urine Microscopic RBC 3 /HPF Urine Microscopic WBC 11 /HPF Urine Hemoglobin NEGATIVE mg/dL Urine Glucose NEGATIVE mg/dL Urine Total Protein NEGATIVE mg/dl Sodium Level 143 mmol/L Potassium Level 4.0 mmol/L Chloride Level 109 mmol/L Carbon Dioxide Level 25 mmol/L Anion Gap 9 Blood Urea Nitrogen 17 mg/dl Creatinine 0.55 mg/dl Est Glomerular Filtrat Rate mL/min > 60 mL/min Glucose Level 121 mg/dl Calcium Level 9.9 mg/dl Total Bilirubin 0.5 mg/dl Direct Bilirubin 0.00 mg/dl Indirect Bilirubin 0.5 mg/dl Aspartate Amino Transf (AST/SGOT) 29 IU/L Alanine Aminotransferase (ALT/SGPT) 29 IU/L Alkaline Phosphatase 86 IU/L Troponin I < 0.012 ng/ml Total Protein 7.6 g/dl Albumin 4.2 g/dl Globulin 3.40 g/dl Albumin/Globulin Ratio 1.23 Urine Opiates Screen Negative Urine Barbiturates Negative Urine Amphetamines Screen Negative Urine Benzodiazepines Screen Negative Urine Cocaine Screen Negative Urine Cannabinoids Negative POC Beta HCG, Qualitative NEGATIVE Current Medications Medications Dose Sig/Anish Start Time Status Last (Trade) Ordered Route PRN Stop Time Admin Dose Reason Admin Aspirin 325 mg ONCE ONCE 09/21/18 DC (Ecotrin) PO 02:30 09/21/18 02:58 Lorazepam 1 mg ONCE ONCE 09/21/18 DC 09/21/18 (Ativan) PO 02:30 03:00 09/21/18 02:31 Aspirin 81 mg STK-MED 09/21/18 DC (Aspirin) ONCE .ROUTE 02:56 09/21/18 02:57 Aspirin 324 mg ONCE ONCE 09/21/18 DC 09/21/18 (Aspirin) PO 03:00 03:01 09/21/18 03:01 Procedures/MDM Diagnostic tests: POC urine : Negative. Urinalysis: Reviewed. Leukocyte esterase is 1+. WBC is 11. Urine drug screen: Reviewed. EKG: Normal sinus rhythm with a ventricular rate of 75 bpm. No STEMI. Read by supervising physician. Blood works: Reviewed. Troponin: Less than 0.012. Treatment: Ativan. Aspirin. Re-evaluation: Denies chest pain. No neurological deficits. Denies auditory/visual hallucinations/delusions. Not suicidal. Not homicidal. Has the capacity to decide for herself. Has good support system at home. Stated that she feels much better at this time and that she is ready to go home. Differential diagnosis I have low suspicion for acute myocardial infarction, non-STEMI, pulmonary embolism, sepsis Final diagnosis: Anxiety. UTI. Prescription: Bactrim. Motrin. Hydroxyzine. Protonix. Follow-up with PCP in the next 24-48 hours. Follow-up with psychiatrist in the next 24 to 48 hours. Come back here in the emergency department for any new symptoms or any worsening symptoms. All questions and concerns were answered. Patient and family members verbalized understanding and agreed with plan of care. Hemodynamically stable on discharge. Departure Diagnosis: Primary Impression: Anxiety attack Additional Impressions: Anxiety UTI (urinary tract infection) Condition: Stable Additional Instructions: Follow-up with PCP in the next 24-48 hours. Follow-up with psychiatrist in the next 24 to 48 hours. Come back here in the emergency department for any new symptoms or any worsening symptoms. CLAUDIA ALLEN September 21, 2018 02:24
[2018-09-21] MEDS ORDERED: ASPIRIN (EC) 325 MG TAB PO ONE (02:30)
[2018-09-21] MEDS ORDERED: LORAZEPAM 1 MG TAB PO ONE (02:30)
[2018-09-21] MEDS ORDERED: ASPIRIN 81 MG TAB ONE (02:56)
[2018-09-21] MEDS ORDERED: ASPIRIN 81 MG TAB PO ONE (03:00)
[2018-09-21] MEDS ORDERED: HYDR50TA15 PO (04:06)
[2018-09-21] MEDS ORDERED: SULF1TAB31 PO (04:07)
[2018-09-21] MEDS ORDERED: IBUP800T48 PO (04:07)
[2018-09-21] MEDS ORDERED: PANT40TA3 PO (04:10)
== END 2018-09-21 04:16 | disposition home or self-care (01) ==
LOC: FTE 01:55
DX: F41.9 Anxiety disorder, unspecified (principal); N39.0 Urinary tract infection, site not specified
CPT/HCPCS: 36415; 80053; 80307; 81001; 81025; 84484; 85025; 85610; 85730; 93005

== ENCOUNTER 2018-10-08 04:27 | Emergency (ER) | payer BC ==
[~2018-10-08] VITALS: Ht 172.7 cm; Wt 113.8 kg
[~2018-10-08 04:27] MED LIST changes: +HYDR50TA15 PO; +IBUP800T48 PO; +SULF1TAB31 PO
[2018-10-08 04:29] VITALS: Ht 172.7 cm; Wt 113.8 kg
[2018-10-08] MEDS ORDERED: SOD CHLORIDE 0.9% 500 ML IV STA (05:05)
[2018-10-08] MEDS ORDERED: ONDANSETRON 4 MG INJ IV STA (05:42)
[2018-10-08] MEDS ORDERED: morphine 4 MG/ML VIAL IV STA (05:42)
--- NOTE | 2018-10-08 06:25 | ERD ---
ER Documentation Chief Complaint Chief Complaint CP X'S 2 HOURS, HX OF [place] HPI 28-year-old female was awoken from sleep by an anxious moments when an animal was making noise outside of her house. This then precipitated a nonspecific discomfort about her chest. This was severe and lasted for only a couple of months. Patient had no concurrent fevers, chills, sputum production. Patient had no hemoptysis. Patient states that symptoms felt the same as what she had when she had a non-ST elevation myocardial infarction was thought to be related to vasospasm in July. Upon arrival, patient is essentially chest pain-free. ROS All systems reviewed and are negative except as per history of present illness. Medications Home Meds Active Scripts Pantoprazole* (Protonix*) 40 Mg Tablet.dr, 40 MG PO DAILY, #30 TAB Prov:BLAKEILATANIYACLAUDIA 09/21/18 Ibuprofen* (Motrin*) 800 Mg Tab, 800 MG PO Q6H PRN for PAIN AND OR ELEVATED TEMP, #30 TAB Prov:RENÉETANIYACLAUDIA Piña 09/21/18 Sulfamethoxazole/Trimethoprim* (Bactrim Ds* Tablet) 1 Each Tablet, 1 TAB PO BID for 7 Days, #14 TAB Prov:BLAKEILACLAUDIA MONAHAN 09/21/18 Hydroxyzine Hcl* (Hydroxyzine Hcl*) 50 Mg Tablet, 50 MG PO Q6 PRN for ANXIETY, #30 TAB Prov:CLAUDIA ALLEN F 09/21/18 Naproxen* (Naprosyn*) 500 Mg Tablet, 500 MG PO BID PRN for PAIN AND/OR INFLAMMATION, #30 TAB Prov:JOHN NAVAS MD 09/10/18 Reported Medications Amlodipine Besylate* (Amlodipine Besylate*) 2.5 Mg Tablet, 2.5 MG PO DAILY, #30 TAB 09/10/18 Nitroglycerin* (Nitroglycerin* SL) 0.4 Mg Tab.subl, 0.4 MG SL Q5MIN PRN for CHEST PAIN, BOTTLE 09/10/18 Metoprolol Succinate* (Toprol XL*) 50 Mg Tab.er.24h, 50 MG PO DAILY, #30 TAB 08/25/18 Estradiol* (Estrace*) 2 Mg Tab, 2 MG PO BID, TAB 08/25/18 Pantoprazole* (Protonix*) 40 Mg Tablet.dr, 40 MG PO DAILY, TAB 08/25/18 Allergies Allergies: Coded Allergies: Penicillins (Verified Allergy, Unknown, 09/10/18) PMhx/Soc History of Surgery: Yes ("gender affirmation sx") Anesthesia Reaction: No Hx Neurological Disorder: No Hx Respiratory Disorders: No Hx Cardiac Disorders: No Hx Psychiatric Problems: Yes (hypochondriac, anxiety) Hx Miscellaneous Medical Probl: Yes (hysterectomy, appendectomy) Hx Alcohol Use: No Hx Substance Use: No Hx Tobacco Use: No Smoking Status: Never smoker FmHx Supportive father at bedside Physical Exam Vitals Vital Signs Date Temp Pulse Resp B/P (MAP) Pulse Ox O2 O2 Flow FiO2 Time Delivery Rate 10/08/18 99 18 99 Room Air 06:17 10/08/18 98.0 99 20 157/93 98 04:29 (114) Physical Exam GENERAL: The patient is well developed and appropriate for usual state of health in no apparent distress HEENT: Pupils equal, round, and reactive to light. EOMI. There is no scleral icterus. NECK: C-spine is soft and supple, there is no meningismus. There is no cervical lymphadenopathy. LUNGS: Clear to auscultation bilaterally. There are no rales, wheezes or rhonchi. HEART: Regular rate and rhythm, no murmurs, clicks, rubs or gallops. ABDOMEN: Soft, non-tender, non-distended. There are bowel sounds in all four quadrants. No rebound or guarding. EXTREMITIES: There is no peripheral cyanosis or edema. No focal swelling or erythema. NEURO: The patient moves all four extremities with 5/5 strength. Cranial nerves II - XII are intact. Normal gait. Alert and oriented SKIN: There is no apparent rash or petechiae. HEME/LYMPHATIC: There is no evidence of excessive bruising or lymphedema. PSYCHIATRIC: The patient does not appear anxious or depressed. Result Diagram: 10/08/18 0509 10/08/18 0509 Results 24 hrs Laboratory Tests Test 10/08/18 05:09 White Blood Count 7.6 10^3/ul Red Blood Count 5.00 10^6/ul Hemoglobin 13.7 g/dl Hematocrit 40.6 % Mean Corpuscular Volume 81.2 fl Mean Corpuscular Hemoglobin 27.4 pg Mean Corpuscular Hemoglobin Concent 33.7 g/dl Red Cell Distribution Width 13.5 % Platelet Count 231 10^3/UL Mean Platelet Volume 8.9 fl Immature Granulocytes % 0.700 % Neutrophils % 61.2 % Lymphocytes % 30.8 % Monocytes % 5.6 % Eosinophils % 1.4 % Basophils % 0.3 % Nucleated Red Blood Cells % 0.0 /100WBC Immature Granulocytes # 0.050 10^3/ul Neutrophils # 4.7 10^3/ul Lymphocytes # 2.4 10^3/ul Monocytes # 0.4 10^3/ul Eosinophils # 0.1 10^3/ul Basophils # 0.0 10^3/ul Nucleated Red Blood Cells # 0.0 10^3/ul Prothrombin Time 12.0 Sec Prothrombin Time Ratio 0.9 INR International Normalized Ratio 0.88 Activated Partial Thromboplast Time 27.7 Sec Sodium Level 142 mmol/L Potassium Level 3.6 mmol/L Chloride Level 111 mmol/L Carbon Dioxide Level 23 mmol/L Anion Gap 8 Blood Urea Nitrogen 11 mg/dl Creatinine 0.50 mg/dl Est Glomerular Filtrat Rate mL/min > 60 mL/min Glucose Level 141 mg/dl Calcium Level 9.6 mg/dl Total Bilirubin 0.4 mg/dl Direct Bilirubin 0.00 mg/dl Indirect Bilirubin 0.4 mg/dl Aspartate Amino Transf (AST/SGOT) 23 IU/L Alanine Aminotransferase (ALT/SGPT) 29 IU/L Alkaline Phosphatase 89 IU/L Troponin I 0.040 ng/ml B-Type Natriuretic Peptide 21 PG/ML Total Protein 7.0 g/dl Albumin 4.0 g/dl Globulin 3.00 g/dl Albumin/Globulin Ratio 1.33 Lipase 54 U/L Current Medications Medications Dose Sig/Anish Start Time Status Last (Trade) Ordered Route PRN Stop Time Admin Dose Reason Admin Sodium 500 ml @ Q1H STAT 10/08/18 DC 10/08/18 Chloride 500 mls/hr IV 05:05 05:17 10/08/18 06:04 Morphine 4 mg ONCE STAT 10/08/18 DC 10/08/18 Sulfate IV 05:42 05:52 (morphine) 10/08/18 05:43 Ondansetron 4 mg ONCE STAT 10/08/18 DC 10/08/18 HCl (Zofran IV 05:42 05:51 Inj) 10/08/18 05:43 Procedures/MDM Patient was taken to a room, seen and evaluated. Comfort measures were initiated. Diagnostic tests were ordered and reviewed. 3 LEAD RHYTHM STRIP: Normal sinus rhythm without ectopy EK lead EKG reviewed by myself: Normal Sinus Rhythm Normal [place] and intervals Nonspecific ST and T wave changes without ST elevation Impression: Nonspecific EKG RADIOLOGY: Reviewed with the radiologist REEVALUATION: 0625: Diagnostic tests were appreciated and discussed with the patient and family. Arrangements were made for discharge. MEDICAL DECISION MAKIN-year-old female with no significant cardiac risk factors, but a history of vasospastic disease presumedly, presents to the emergency department after a nonspecific episode of chest discomfort. EKG and troponin are reassuring and given the patient's non-ischemic work-up, patient shows no evidence of this being high risk cardiac concerns. Overall, patient is clinically nontoxic and seems appropriate for discharge at this time. Departure Diagnosis: Primary Impression: Chest pain Condition: Stable Patient Instructions: Anxiety Reaction, Chest Pain, Uncertain Cause Additional Instructions: See your doctor for follow-up as discussed. Take a copy of your test results, if appropriate, to this follow-up visit. See your doctor or return here if your symptoms do not improve as expected. At any time, please return to the emergency department for any change or worsening in her symptoms. DANA CANTRELL Oct 08, 2018 06:25
[2018-10-08 06:42] VITALS: BP 138/81; PULSE 92; RESP 14
== END 2018-10-08 06:46 | disposition home or self-care (01) ==
LOC: E/R 04:27
DX: R07.9 Chest pain, unspecified (principal); I25.2 Old myocardial infarction
CPT/HCPCS: 36415; 71045; 80053; 83690; 83880; 84484; 85025; 85378; 85610; 85730; 93005; 96374; 96375; 99285; J2270; J2405; J7040

== ENCOUNTER 2018-10-31 01:39 | Emergency (ER) | payer BC ==
[~2018-10-31] VITALS: Ht 175.3 cm; Wt 115.1 kg
[2018-10-31 01:41] VITALS: Ht 175.3 cm; Wt 115.1 kg
--- NOTE | 2018-10-31 02:37 | ERD ---
ER Documentation Chief Complaint Chief Complaint pt reports feeling shakey and light headed HPI 28-year-old female with history of coronary vasospasm and anxiety presents with complaint of shakiness and feeling lightheaded. States that the episode of feeling shaky and lightheaded happened at 10 PM tonight. Patient states that she woke up when it happened. Episode self resolved. Patient denies any current symptoms. Patient denies any headaches, chest pain, cough, numbness, weakness, diaphoresis, nausea, vomiting, leg swelling, leg erythema, leg pain, history of clotting disorders, Dyspnea. ROS All systems reviewed and are negative except as per history of present illness. Medications Home Meds Active Scripts Pantoprazole* (Protonix*) 40 Mg Tablet.dr, 40 MG PO DAILY, #30 TAB Prov:PASILATANIYAJAMESKILO F 09/21/18 Ibuprofen* (Motrin*) 800 Mg Tab, 800 MG PO Q6H PRN for PAIN AND OR ELEVATED TEMP, #30 TAB Prov:PASILABANCLAUDIA F 09/21/18 Sulfamethoxazole/Trimethoprim* (Bactrim Ds* Tablet) 1 Each Tablet, 1 TAB PO BID for 7 Days, #14 TAB Prov:PASILABANJAMESKILO F 09/21/18 Hydroxyzine Hcl* (Hydroxyzine Hcl*) 50 Mg Tablet, 50 MG PO Q6 PRN for ANXIETY, #30 TAB Prov:PASILABANCLAUDIA F 09/21/18 Naproxen* (Naprosyn*) 500 Mg Tablet, 500 MG PO BID PRN for PAIN AND/OR INFLAMMATION, #30 TAB Prov:JOHN NAVAS MD 09/10/18 Reported Medications Amlodipine Besylate* (Amlodipine Besylate*) 2.5 Mg Tablet, 2.5 MG PO DAILY, #30 TAB 09/10/18 Nitroglycerin* (Nitroglycerin* SL) 0.4 Mg Tab.subl, 0.4 MG SL Q5MIN PRN for CHEST PAIN, BOTTLE 09/10/18 Metoprolol Succinate* (Toprol XL*) 50 Mg Tab.er.24h, 50 MG PO DAILY, #30 TAB 08/25/18 Estradiol* (Estrace*) 2 Mg Tab, 2 MG PO BID, TAB 08/25/18 Pantoprazole* (Protonix*) 40 Mg Tablet.dr, 40 MG PO DAILY, TAB 08/25/18 Allergies Allergies: Coded Allergies: Penicillins (Verified Allergy, Unknown, 09/10/18) PMhx/Soc History of Surgery: Yes ("gender affirmation sx") Anesthesia Reaction: No Hx Neurological Disorder: No Hx Respiratory Disorders: No Hx Cardiac Disorders: No Hx Psychiatric Problems: Yes (hypochondriac, anxiety) Hx Miscellaneous Medical Probl: Yes (hysterectomy, appendectomy) Hx Alcohol Use: No Hx Substance Use: No Hx Tobacco Use: No Smoking Status: Never smoker FmHx Family History: No diabetes, No coronary disease, No other Physical Exam Vitals Vital Signs Date Temp Pulse Resp B/P (MAP) Pulse Ox O2 O2 Flow FiO2 Time Delivery Rate 10/31/18 98.0 89 17 128/68 97 Room Air 03:35 (88) 10/31/18 98.3 100 20 157/72 100 01:41 (100) Physical Exam Const: No acute distress Head: Atraumatic Eyes: Normal Conjunctiva ENT: Normal External Ears, Nose and Mouth. Neck: Full range of motion. No meningismus. Resp: Clear to auscultation bilaterally Cardio: Regular rate and rhythm, no murmurs Abd: Soft, non tender, non distended. Normal bowel sounds Skin: No petechiae or rashes Back: No midline or flank tenderness Ext: No cyanosis, or edema Neur: Awake and alert Psych: Normal Mood and Affect Neuro: M/S: Alert and oriented Face: EOMI, face and pharynx with normal sensation and function Motor: Normal strength throughout Sensation: Normal sensation throughout Speech: Normal Cerebel: Normal coordination Normal gait Normal finger to nose DTR: 2+ and symmetric upper/lower extremities Result Diagram: 10/31/18 0202 10/31/18 0202 Results 24 hrs Laboratory Tests Test 10/31/18 02:02 White Blood Count 8.1 10^3/ul Red Blood Count 4.87 10^6/ul Hemoglobin 13.3 g/dl Hematocrit 38.7 % Mean Corpuscular Volume 79.5 fl Mean Corpuscular Hemoglobin 27.3 pg Mean Corpuscular Hemoglobin Concent 34.4 g/dl Red Cell Distribution Width 13.9 % Platelet Count 238 10^3/UL Mean Platelet Volume 9.1 fl Immature Granulocytes % 0.400 % Neutrophils % 57.3 % Lymphocytes % 35.1 % Monocytes % 5.5 % Eosinophils % 1.5 % Basophils % 0.2 % Nucleated Red Blood Cells % 0.0 /100WBC Immature Granulocytes # 0.030 10^3/ul Neutrophils # 4.7 10^3/ul Lymphocytes # 2.9 10^3/ul Monocytes # 0.5 10^3/ul Eosinophils # 0.1 10^3/ul Basophils # 0.0 10^3/ul Nucleated Red Blood Cells # 0.0 10^3/ul Sodium Level 144 mmol/L Potassium Level 3.8 mmol/L Chloride Level 109 mmol/L Carbon Dioxide Level 23 mmol/L Anion Gap 12 Blood Urea Nitrogen 10 mg/dl Creatinine 0.69 mg/dl Est Glomerular Filtrat Rate mL/min > 60 mL/min Glucose Level 128 mg/dl Calcium Level 9.5 mg/dl Total Bilirubin 0.4 mg/dl Direct Bilirubin 0.00 mg/dl Indirect Bilirubin 0.4 mg/dl Aspartate Amino Transf (AST/SGOT) 22 IU/L Alanine Aminotransferase (ALT/SGPT) 27 IU/L Alkaline Phosphatase 102 IU/L Troponin I < 0.012 ng/ml Total Protein 7.5 g/dl Albumin 4.1 g/dl Globulin 3.40 g/dl Albumin/Globulin Ratio 1.20 Thyroid Stimulating Hormone (TSH) 4.080 MIU/L Procedures/MDM EKG: Rate/Rhythm: Normal Sinus Rhythm QRS, ST, T-waves: No changes consistent w/ acute ischemia Impression: No evidence of ischemia or arrhythmia MDM: Previous visit notes were reviewed. Patient's EKG was within normal limits. In addition patient's troponin and all labs were within normal limits as well. Patient's neuro exam was within normal limits, there is no history of focal deficits and none were found on exam, and patient exhibited no signs of any kind of CVA. Therefore low suspicion for any kind of cardiomyopathy, hypoglycemia, electrolyte disorder, thyroid disorder, CVA, or any other emergent condition. At this time, patient is stable for discharge and outpatient management. I have instructed the patient to follow-up with his/her primary care physician in 1-2 days. I have discussed with the patient the possibility of needing to see a specialist for further workup and imaging studies if symptoms persist. I have instructed the patient to promptly return to the ER for any new or worsening symptoms including but not limited to increased pain, fever, nausea, vomiting, weakness or LOC. The patient and/or family expressed understanding of and agreement with this plan. All questions were answered. Home care instructions were provided. DISCLAIMER: Inadvertent spelling and grammatical errors are likely due to EHR/dictation software use and do not reflect on the overall quality of patient care. Also, please note that the electronic time recorded on this note does not necessarily reflect the actual time of the patient encounter. Departure Diagnosis: Primary Impression: Nervousness Additional Impression: Episode of shaking Condition: Stable PETER GREENE Oct 31, 2018 02:37
[2018-10-31 03:35] VITALS: BP 128/68; PULSE 89; RESP 17
== END 2018-10-31 03:35 | disposition home or self-care (01) ==
LOC: FTE 01:39
DX: R45.0 Nervousness (principal); R25.1 Tremor, unspecified
CPT/HCPCS: 80053; 84443; 84484; 85025; 93005

== ENCOUNTER 2018-12-03 11:23 | Emergency (ER) | payer BC ==
[~2018-12-03] VITALS: Ht 172.7 cm; Wt 113.8 kg
[~2018-12-03 11:23] MED LIST changes: +AMLO5TAB4 PO; +ONDA4TAB14 PO
[2018-12-03 11:25] VITALS: BP 144/79; PULSE 102; RESP 18; Ht 172.7 cm; Wt 113.8 kg
[2018-12-03] MEDS ORDERED: ONDANSETRON 4 MG INJ IV STA (12:16)
[2018-12-03] MEDS ORDERED: SOD CHLORIDE 0.9% 1,000 ML IV STA (12:16)
--- NOTE | 2018-12-03 12:18 | ERD ---
ER Documentation Chief Complaint Chief Complaint AP TODAY,DIARRHEA HPI This is a 28-year-old female patient who presents emergency room with complaint of lower abdominal pain and diarrhea x1 day. States she is having loose stools with chunks of food in her stool, denies melena or hematochezia. Denies dysuria or hematuria. + Nausea, no fever, pain increases with eating. 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 States her GI doctor has mentioned IBS but is not sure if she has been diagnosed with IBS. GI is Dr. Schroeder at [facility]. ROS All systems reviewed and are negative except as per history of present illness. Medications Home Meds Active Scripts Ondansetron (Ondansetron Odt) 4 Mg Tab.rapdis, 4 MG PO Q6H PRN for NAUSEA AND/OR VOMITING, #10 TAB Prov:YESICA ZUNIGA NP 12/03/18 Pantoprazole* (Protonix*) 40 Mg Tablet.dr, 40 MG PO DAILY, #30 TAB Prov:CLAUDIA ALLEN F 09/21/18 Ibuprofen* (Motrin*) 800 Mg Tab, 800 MG PO Q6H PRN for PAIN AND OR ELEVATED TEMP, #30 TAB Prov:PASILACLAUDIA MONAHAN F 09/21/18 Sulfamethoxazole/Trimethoprim* (Bactrim Ds* Tablet) 1 Each Tablet, 1 TAB PO BID for 7 Days, #14 TAB Prov:BLAKEILACLAUDIA MONAHAN F 09/21/18 Hydroxyzine Hcl* (Hydroxyzine Hcl*) 50 Mg Tablet, 50 MG PO Q6 PRN for ANXIETY, #30 TAB Prov:CLAUDIA ALLEN F 09/21/18 Naproxen* (Naprosyn*) 500 Mg Tablet, 500 MG PO BID PRN for PAIN AND/OR INFLAMMATION, #30 TAB Prov:JOHN NAVAS MD 09/10/18 Reported Medications Amlodipine Besylate* (Amlodipine Besylate*) 2.5 Mg Tablet, 2.5 MG PO DAILY, #30 TAB 09/10/18 Nitroglycerin* (Nitroglycerin* SL) 0.4 Mg Tab.subl, 0.4 MG SL Q5MIN PRN for CHEST PAIN, BOTTLE 09/10/18 Metoprolol Succinate* (Toprol XL*) 50 Mg Tab.er.24h, 50 MG PO DAILY, #30 TAB 08/25/18 Estradiol* (Estrace*) 2 Mg Tab, 2 MG PO BID, TAB 08/25/18 Pantoprazole* (Protonix*) 40 Mg Tablet.dr, 40 MG PO DAILY, TAB 08/25/18 Allergies Allergies: Coded Allergies: Penicillins (Verified Allergy, Unknown, 12/03/18) PMhx/Soc History of Surgery: Yes ("gender affirmation sx") Anesthesia Reaction: No Hx Neurological Disorder: No Hx Respiratory Disorders: No Hx Cardiac Disorders: No Hx Psychiatric Problems: Yes (hypochondriac, anxiety) Hx Miscellaneous Medical Probl: Yes (hysterectomy, appendectomy) Hx Alcohol Use: No Hx Substance Use: No Hx Tobacco Use: No Smoking Status: Never smoker FmHx Family History: No diabetes, No coronary disease, No other Physical Exam Vitals Vital Signs Date Temp Pulse Resp B/P (MAP) Pulse Ox O2 O2 Flow FiO2 Time Delivery Rate 12/03/18 99.1 102 18 144/79 99 11:25 (100) Physical Exam Const: No acute distress Head: Atraumatic Eyes: Normal Conjunctiva, PERRL ENT: Normal External Ears, Nose and Mouth. Oropharynx pink, moist, no lesions, no exudate, no petechiae. Neck: Full range of motion. No meningismus. No lymphadenopathy Resp: Clear to auscultation bilaterally Cardio: Regular rate and rhythm, no murmurs Abd: Soft, non distended. Normal bowel sounds, no guarding, no rebound, no organomegaly. + Echeverria Skin: No petechiae or rashes Back: No midline or flank tenderness, no CVT Ext: No cyanosis, or edema Neur: Awake and alert, clear speech, steady gait Psych: Normal flat Mood and Affect Result Diagram: 12/03/18 1238 12/03/18 1238 Results 24 hrs Laboratory Tests Test 12/03/18 12:37 12/03/18 12:38 Urine Test NEGATIVE White Blood Count 9.7 10^3/ul Red Blood Count 4.84 10^6/ul Hemoglobin 13.3 g/dl Hematocrit 39.5 % Mean Corpuscular Volume 81.6 fl Mean Corpuscular Hemoglobin 27.5 pg Mean Corpuscular Hemoglobin Concent 33.7 g/dl Red Cell Distribution Width 14.0 % Platelet Count 220 10^3/UL Mean Platelet Volume 9.2 fl Immature Granulocytes % 0.300 % Neutrophils % 75.7 % Lymphocytes % 17.9 % Monocytes % 5.3 % Eosinophils % 0.7 % Basophils % 0.1 % Nucleated Red Blood Cells % 0.0 /100WBC Immature Granulocytes # 0.030 10^3/ul Neutrophils # 7.3 10^3/ul Lymphocytes # 1.7 10^3/ul Monocytes # 0.5 10^3/ul Eosinophils # 0.1 10^3/ul Basophils # 0.0 10^3/ul Nucleated Red Blood Cells # 0.0 10^3/ul Urine Color YELLOW Urine Clarity SLIGHTLY CLOUDY Urine pH 5.0 Urine Specific Fisher 1.026 Urine Ketones NEGATIVE mg/dL Urine Nitrite NEGATIVE mg/dL Urine Bilirubin NEGATIVE mg/dL Urine Urobilinogen NEGATIVE mg/dL Urine Leukocyte Esterase NEGATIVE Tanner/ul Urine Microscopic RBC 1 /HPF Urine Microscopic WBC 4 /HPF Urine Squamous Epithelial Cells FEW /HPF Urine Mucus FEW /HPF Urine Hemoglobin NEGATIVE mg/dL Urine Glucose NEGATIVE mg/dL Urine Total Protein NEGATIVE mg/dl Sodium Level 140 mmol/L Potassium Level 4.0 mmol/L Chloride Level 107 mmol/L Carbon Dioxide Level 26 mmol/L Anion Gap 7 Blood Urea Nitrogen 8 mg/dl Creatinine 0.44 mg/dl Est Glomerular Filtrat Rate mL/min > 60 mL/min Glucose Level 129 mg/dl Calcium Level 9.4 mg/dl Total Bilirubin 0.7 mg/dl Direct Bilirubin 0.00 mg/dl Indirect Bilirubin 0.7 mg/dl Aspartate Amino Transf (AST/SGOT) 28 IU/L Alanine Aminotransferase (ALT/SGPT) 28 IU/L Alkaline Phosphatase 79 IU/L Total Protein 7.2 g/dl Albumin 4.0 g/dl Globulin 3.20 g/dl Albumin/Globulin Ratio 1.25 Lipase 26 U/L Current Medications Medications Dose Sig/Anish Start Time Status Last (Trade) Ordered Route PRN Stop Time Admin Dose Reason Admin Sodium 1,000 ml @ Q1H STAT 12/03/18 DC 12/03/18 Chloride 1,000 mls/hr IV 12:16 12/03/18 13:07 13:15 Ondansetron 4 mg ONCE STAT 12/03/18 DC 12/03/18 HCl (Zofran IV 12:16 12/03/18 13:07 Inj) 12:18 Procedures/MDM PROCEDURES/MDM DIAGNOSTIC IMAGING: Read by radiologist. US AD IMPRESSION: Fatty infiltration of the liver. No evidence of gallstones. Limited study due to the patient's body habitus. LAB INTERPRETATION: CBC: No leukocytosis, no anemia CMP: no electrolyte disturbance, normal kidney function, mild hyperglycemia, no transaminitis, normal lipase UA: No nitrites, no ketones, no leukocyte esterase, no hematuria -Medications: NS, Zofran Patient tolerated medication well with no adverse reactions. Patient reported improvement in nausea and general sense well-being MDM: CBC: no e/o of systemic infection or severe anemia CMP: no e/o severe acidosis, alkalosis, renal failure, diabetic ketoacidosis, liver disease Lipase: no e/o pancreatitis Urine: no e/o acute infection or hematuria, no Diagnostics: US Gallbladder- negative for cholecystitis, cholelithiasis, choledocholithiasis The patient presents with mild abdominal pain and loose stool without definite explanation found on evaluation today. However, there are no signs of peritonitis or other life-threatening or serious etiology. The patient appears stable for discharge and has been instructed to return immediately if the symptoms worsen in any way, or in 8-12 hours if not improved for re-evaluation. DISPOSITION and PLAN: RX: zofran The patient has been discharge home to follow-up with community physician. Departure Diagnosis: Primary Impression: Nausea Additional Impression: Loose stools Condition: Stable YESICA ZUNIGA NP Dec 03, 2018 12:18
== END 2018-12-03 14:28 | disposition home or self-care (01) ==
LOC: FTE 11:23
DX: R11.0 Nausea (principal); R19.7 Diarrhea, unspecified
CPT/HCPCS: 36415; 76705; 80053; 81001; 83690; 84703; 85025; 96361; 96374; 99285; J2405; J7030; 81003

== ENCOUNTER 2018-12-04 22:52 | Emergency (ER) | payer BC ==
[~2018-12-04] VITALS: Ht 177.8 cm; Wt 115.1 kg
[2018-12-04 22:59] VITALS: RESP 16; Ht 177.8 cm; Wt 115.1 kg
--- NOTE | 2018-12-05 01:08 | ERD ---
ER Documentation Chief Complaint Chief Complaint AP X 3 DAYS. HPI 28-year-old female presenting with abdominal pain for the past 2 to 3 days with associated watery diarrhea. She had associated fever today which concerned her. She was here yesterday and she had a work-up done. She then went to [facility] later at night where she had a CT of the abdomen and pelvis which showed no significant abnormalities. She then followed up with her primary clinic today where they did stool studies on her which are still pending. Patient does have a history of C. difficile infection in the past, which is why she is concerned. ROS All systems reviewed and are negative except as per history of present illness. Medications Home Meds Active Scripts Ondansetron (Ondansetron Odt) 4 Mg Tab.rapdis, 4 MG PO Q6H PRN for NAUSEA AND/OR VOMITING, #10 TAB Prov:YESICA ZUNIGA NP 12/03/18 Pantoprazole* (Protonix*) 40 Mg Tablet.dr, 40 MG PO DAILY, #30 TAB Prov:CLAUDIA ALLEN 09/21/18 Ibuprofen* (Motrin*) 800 Mg Tab, 800 MG PO Q6H PRN for PAIN AND OR ELEVATED TEMP, #30 TAB Prov:CLAUDIA ALLEN 09/21/18 Sulfamethoxazole/Trimethoprim* (Bactrim Ds* Tablet) 1 Each Tablet, 1 TAB PO BID for 7 Days, #14 TAB Prov:CLAUDIA ALLEN 09/21/18 Hydroxyzine Hcl* (Hydroxyzine Hcl*) 50 Mg Tablet, 50 MG PO Q6 PRN for ANXIETY, #30 TAB Prov:CLAUDIA ALLEN 09/21/18 Naproxen* (Naprosyn*) 500 Mg Tablet, 500 MG PO BID PRN for PAIN AND/OR INFLAMMATION, #30 TAB Prov:JOHN NAVAS MD 09/10/18 Reported Medications Amlodipine Besylate* (Amlodipine Besylate*) 2.5 Mg Tablet, 2.5 MG PO DAILY, #30 TAB 09/10/18 Nitroglycerin* (Nitroglycerin* SL) 0.4 Mg Tab.subl, 0.4 MG SL Q5MIN PRN for CHEST PAIN, BOTTLE 09/10/18 Metoprolol Succinate* (Toprol XL*) 50 Mg Tab.er.24h, 50 MG PO DAILY, #30 TAB 08/25/18 Estradiol* (Estrace*) 2 Mg Tab, 2 MG PO BID, TAB 08/25/18 Pantoprazole* (Protonix*) 40 Mg Tablet.dr, 40 MG PO DAILY, TAB 08/25/18 Allergies Allergies: Coded Allergies: Penicillins (Verified Allergy, Unknown, 12/03/18) PMhx/Soc History of Surgery: Yes ("gender affirmation sx") Anesthesia Reaction: No Hx Neurological Disorder: No Hx Respiratory Disorders: No Hx Cardiac Disorders: No Hx Psychiatric Problems: Yes (hypochondriac, anxiety) Hx Miscellaneous Medical Probl: Yes (hysterectomy, appendectomy) Hx Alcohol Use: No Hx Substance Use: No Hx Tobacco Use: No Smoking Status: Never smoker FmHx Family History: No diabetes Physical Exam Vitals Vital Signs Date Temp Pulse Resp B/P (MAP) Pulse Ox O2 O2 Flow FiO2 Time Delivery Rate 12/05/18 89 139/89 16 Room Air 01:18 (106) 12/04/18 99.2 93 16 143/81 96 22:59 (101) Physical Exam Const: No acute distress Head: Atraumatic Eyes: Normal Conjunctiva ENT: Normal External Ears, Nose and Mouth. Neck: Full range of motion. No meningismus. Resp: Clear to auscultation bilaterally Cardio: Regular rate and rhythm, no murmurs Abd: Soft, non tender, non distended. Normal bowel sounds Skin: No petechiae or rashes Back: No midline or flank tenderness Ext: No cyanosis, or edema Neur: Awake and alert Psych: Normal Mood and Affect Result Diagram: 12/05/18 0020 12/05/18 0020 Results 24 hrs Laboratory Tests Test 12/05/18 00:20 White Blood Count 7.7 10^3/ul Red Blood Count 4.77 10^6/ul Hemoglobin 13.1 g/dl Hematocrit 39.7 % Mean Corpuscular Volume 83.2 fl Mean Corpuscular Hemoglobin 27.5 pg Mean Corpuscular Hemoglobin Concent 33.0 g/dl Red Cell Distribution Width 13.9 % Platelet Count 200 10^3/UL Mean Platelet Volume 8.8 fl Immature Granulocytes % 0.300 % Neutrophils % 65.9 % Lymphocytes % 25.1 % Monocytes % 7.5 % Eosinophils % 0.8 % Basophils % 0.4 % Nucleated Red Blood Cells % 0.0 /100WBC Immature Granulocytes # 0.020 10^3/ul Neutrophils # 5.1 10^3/ul Lymphocytes # 1.9 10^3/ul Monocytes # 0.6 10^3/ul Eosinophils # 0.1 10^3/ul Basophils # 0.0 10^3/ul Nucleated Red Blood Cells # 0.0 10^3/ul Sodium Level 138 mmol/L Potassium Level 3.9 mmol/L Chloride Level 105 mmol/L Carbon Dioxide Level 27 mmol/L Anion Gap 6 Blood Urea Nitrogen 8 mg/dl Creatinine 0.47 mg/dl Est Glomerular Filtrat Rate mL/min > 60 mL/min Glucose Level 150 mg/dl Calcium Level 9.2 mg/dl Procedures/MDM EMERGENT LABS AND DIAGNOSTIC STUDIES: Lab Results above were reviewed and interpreted by me. CBC: no anemia or evidence of infection BMP: [no e/o clinically significant electrolyte abnormality severe acidosis, alkalosis, renal failure, diabetic ketoacidosis] C. difficile study pending Initial Nursing notes reviewed. Previous Medical Records requested via the Electronic Health Record. EMERGENCY DEPARTMENT COURSE / MEDICAL DECISION MAKING: Patient is presenting with concerns for possible sepsis and C. difficile. At this time she does not meet sepsis criteria. I have a low suspicion for C. difficile infection but I did send out the study which is pending. Low suspicion for acute surgical abdomen. I do not feel she needs imaging at this time. Patient reassured. Advised to follow-up with her PCP regarding her stool study results. We will call her if her C. difficile is positive. She has any worsening symptoms or concerns, she was encouraged to return to the ER. Patient's blood pressure was elevated (>120/80) but appears stable without evidence of hypertensive emergency or urgency. The patient was counseled about the risks of hypertension and urged to pursue outpatient monitoring and therapy within a week with their primary care physician. Departure Diagnosis: Primary Impression: Diarrhea Diarrhea type: unspecified type Qualified Codes: R19.7 - Diarrhea, unspecified Condition: Stable Patient Instructions: Diarrhea, Unk Cause (Adult) Report Pendg Referrals: DOCTOR,NOT ON STAFF (PCP) AWILDA SRINIVASAN MD Dec 05, 2018 01:08
[2018-12-05 01:18] VITALS: BP 139/89; PULSE 89
== END 2018-12-05 01:19 | disposition home or self-care (01) ==
LOC: E/R 22:52
DX: R19.7 Diarrhea, unspecified (principal)
CPT/HCPCS: 36415; 80048; 85025; 99283

== ENCOUNTER 2018-12-12 02:44 | Emergency (ER) | payer BC ==
[~2018-12-12] VITALS: Ht 172.7 cm; Wt 113.6 kg
[2018-12-12 02:47] VITALS: Ht 172.7 cm; Wt 113.6 kg
--- NOTE | 2018-12-12 03:16 | ERD ---
ER Documentation Chief Complaint Chief Complaint PALPITATIONS HPI The patient is a 28-year-old transgender, male to female, presenting to the ER because of palpitation around 2 AM that resolved spontaneously, had similar symptoms previously. She feels very anxious and denies any symptoms now. She denies fever, chills, syncope, near syncope, neck pain, chest pain, dyspnea, abdominal pain, vomiting, dizzy, diarrhea. She is having a sleep study to rule out sleep apnea in the next 2 days. She does not smoke nor drink or does [place] licit drug Past medical history: Hypertension, anxiety, h/o postural orthostatic tachycardia Surgical history: Appendectomy, hysterectomy, she had EGD recently that show GERD ROS All systems reviewed and are negative except as per history of present illness. Medications Home Meds Active Scripts Pantoprazole* (Protonix*) 40 Mg Tablet.dr, 40 MG PO DAILY, #30 TAB Prov:CLAUDIA ALLEN 09/21/18 Reported Medications Amlodipine Besylate* (Norvasc*) 5 Mg Tablet, 5 MG PO QAM, TAB 12/12/18 Nitroglycerin* (Nitroglycerin* SL) 0.4 Mg Tab.subl, 0.4 MG SL Q5MIN PRN for CHEST PAIN, BOTTLE 09/10/18 Metoprolol Succinate* (Toprol XL*) 50 Mg Tab.er.24h, 50 MG PO QAM, #30 TAB 08/25/18 Estradiol* (Estrace*) 2 Mg Tab, 2 MG PO BID, TAB 08/25/18 Discontinued Reported Medications Amlodipine Besylate* (Amlodipine Besylate*) 2.5 Mg Tablet, 2.5 MG PO DAILY, #30 TAB 09/10/18 Pantoprazole* (Protonix*) 40 Mg Tablet.dr, 40 MG PO DAILY, TAB 08/25/18 Discontinued Scripts Ondansetron (Ondansetron Odt) 4 Mg Tab.rapdis, 4 MG PO Q6H PRN for NAUSEA AND/OR VOMITING, #10 TAB Prov:YESICA ZUNIGA NP 12/03/18 Ibuprofen* (Motrin*) 800 Mg Tab, 800 MG PO Q6H PRN for PAIN AND OR ELEVATED TEMP, #30 TAB Prov:CLAUDIA ALLEN 09/21/18 Sulfamethoxazole/Trimethoprim* (Bactrim Ds* Tablet) 1 Each Tablet, 1 TAB PO BID for 7 Days, #14 TAB Prov:CLAUDIA ALLEN 09/21/18 Hydroxyzine Hcl* (Hydroxyzine Hcl*) 50 Mg Tablet, 50 MG PO Q6 PRN for ANXIETY, #30 TAB Prov:CLAUDIA ALLEN 09/21/18 Naproxen* (Naprosyn*) 500 Mg Tablet, 500 MG PO BID PRN for PAIN AND/OR INFLAMMATION, #30 TAB Prov:JOHN NAVAS MD 09/10/18 Allergies Allergies: Coded Allergies: Penicillins (Verified Allergy, Unknown, 12/03/18) PMhx/Soc History of Surgery: Yes ("gender affirmation sx", APPENDECTOMY) Anesthesia Reaction: No Hx Neurological Disorder: No Hx Respiratory Disorders: No Hx Cardiac Disorders: Yes (CORONARY ARTERY SPASMS) Hx Psychiatric Problems: Yes (hypochondriac, anxiety) Hx Miscellaneous Medical Probl: Yes (hysterectomy, appendectomy) Hx Alcohol Use: No Hx Substance Use: No Hx Tobacco Use: No Smoking Status: Never smoker Physical Exam Vitals Vital Signs Date Temp Pulse Resp B/P (MAP) Pulse Ox O2 O2 Flow FiO2 Time Delivery Rate 12/12/18 80 14 122/68 98 Room Air 05:35 (86) 12/12/18 75 13 120/71 97 Room Air 05:13 (87) 12/12/18 98.0 97 17 127/81 97 02:47 (96) Physical Exam Const: No acute distress. Head: Atraumatic. Eyes: Normal Conjunctiva. ENT: Normal External Ears, Nose and Mouth. Neck: Full range of motion. No meningismus. Resp: Clear to auscultation bilaterally. Cardio: Regular rate and rhythm. Abd: Soft, non distended, normal bowel sounds, non tender. Skin: No petechiae or rashes. Back: No midline or flank tenderness. Ext: No cyanosis, or edema. Neur: Awake and alert. No focal deficit Psych: Normal Mood and Affect. Result Diagram: 12/12/18 0329 12/12/18 0329 Results 24 hrs Laboratory Tests Test 12/12/18 03:29 White Blood Count 8.9 10^3/ul Red Blood Count 4.87 10^6/ul Hemoglobin 13.3 g/dl Hematocrit 40.1 % Mean Corpuscular Volume 82.3 fl Mean Corpuscular Hemoglobin 27.3 pg Mean Corpuscular Hemoglobin Concent 33.2 g/dl Red Cell Distribution Width 13.2 % Platelet Count 246 10^3/UL Mean Platelet Volume 9.2 fl Immature Granulocytes % 0.700 % Neutrophils % 60.6 % Lymphocytes % 31.0 % Monocytes % 6.1 % Eosinophils % 1.3 % Basophils % 0.3 % Nucleated Red Blood Cells % 0.0 /100WBC Immature Granulocytes # 0.060 10^3/ul Neutrophils # 5.4 10^3/ul Lymphocytes # 2.8 10^3/ul Monocytes # 0.5 10^3/ul Eosinophils # 0.1 10^3/ul Basophils # 0.0 10^3/ul Nucleated Red Blood Cells # 0.0 10^3/ul D-Dimer < 220.00 ng/ml D-Dimer Comment Sodium Level 140 mmol/L Potassium Level 3.8 mmol/L Chloride Level 105 mmol/L Carbon Dioxide Level 26 mmol/L Anion Gap 9 Blood Urea Nitrogen 11 mg/dl Creatinine 0.49 mg/dl Est Glomerular Filtrat Rate mL/min > 60 mL/min Glucose Level 144 mg/dl Calcium Level 9.8 mg/dl Procedures/MDM MEDICAL MAKING DECISION: The patient is a 28-year-old female, presenting with transient palpitation of unclear etiology, most likely related to her anxiety, is stable for outpatient follow-up The differential diagnoses considered include but are not limited to anxiety attack, panic attack, dehydration, thyroid disease, sleep apnea Departure Diagnosis: Primary Impression: Palpitation Condition: Good Comments I discussed the findings with the patient. I advised the patient to follow-up with the primary physician in about 1-2 days, sooner if needed and return if any concern. Disclaimer: Inadvertent spelling and grammatical errors are likely due to EHR/dictation software use and do not reflect on the overall quality of patient care. Also, please note that the electronic time recorded on this note does not necessarily reflect the actual time of the patient encounter. JEWEL TORRES MD Dec 12, 2018 03:16
[2018-12-12 05:35] VITALS: BP 122/68; PULSE 80; RESP 14
== END 2018-12-12 05:48 | disposition home or self-care (01) ==
LOC: E/R 02:44
DX: R00.2 Palpitations (principal); R40.2142 Coma scale, eyes open, spontaneous, at arrival to emergency department; R40.2252 Coma scale, best verbal response, oriented, at arrival to emergency department; R40.2362 Coma scale, best motor response, obeys commands, at arrival to emergency department; I10 Essential (primary) hypertension
CPT/HCPCS: 36415; 80048; 85025; 85378; 93005